=== PATIENT | male | born 1950 | race Caucasian/White ===

== ENCOUNTER 2017-11-26 07:33 | Day surgery (SDC) | payer OTHER ==
[2017-11-26] MEDS ORDERED: Ringers Lactate 1,000 ML IV ONE (07:42)
[2017-11-26] MEDS ORDERED: PROPOFOL 200 MG/20 ML VIAL IV ONE (08:35)
[2017-11-26] MEDS ORDERED: LIDOCAINE 1% MPF 2 ML AMPULE ONE (08:36)
--- NOTE | 2017-11-26 09:02 | ENDO RPT ---
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 ESTIMATED BLOOD LOSS: None CONSENT: The patient understands the risks and benefits of the procedure and understands that these risks include, but are not limited to: sedation, allergic reaction, infection, perforation and/or bleeding. Alternative means of evaluation and treatment include, among others: physical exam, x-rays, and/or surgical intervention. The patient elects to proceed with this endoscopic procedure. DESCRIPTION OF PROCEDURE: During intra-op preparation period all mechanical medical equipment was checked for proper function. Hand hygiene and appropriate measures for infection prevention was taken. Procedure, possible complications, alternatives including, but not limited to possibility of bleeding, perforation, tear, infection, sepsis, need for surgery, need for blood transfusion, were explained to the patient. After the risks, benefits and alternatives of the procedure were thoroughly explained, Informed consent was verified, confirmed and timeout was successfully executed by the treatment team. The patient was placed in the left lateral position. A digital rectal exam was performed and revealed internal hemorrhoids and A digital rectal exam was performed and revealed an enlarged prostate. After appropriate level of anesthesia, the scope was passed. The EC-[id number] ([id number] endoscope was introduced through the anus and advanced to the cecum, which was identified by both the appendix and ileocecal valve. The quality of the prep was good. The instrument was then slowly withdrawn as the colon was fully examined. Scope withdrawal time was 9 minutes. COLON FINDINGS: Mild diverticulosis was noted in the sigmoid colon. No bleeding was noted from the diverticulosis. Moderate sized internal hemorrhoids were found. Retroflexed views revealed no abnormalities. The scope was then completely withdrawn from the patient and the procedure terminated. ADVERSE EVENTS: There were no complications. IMPRESSIONS: 1. Mild diverticulosis was noted in the sigmoid colon 2. Moderate sized internal hemorrhoids RECOMMENDATIONS: 1. fiber rich diet 2. hemorrhoidal hygiene 3. yearly hemoccult starting in 4 years RECALL: Return in 10 year(s) for Colonoscopy. Jonah Flores DR eSigned: Jonah Flores DR 11/26/2017 9:01 AM cc: CPT CODES: ICD9 CODES: PATIENT NAME: Paras DíazRobyn MR#: [id number]
== END 2017-11-26 09:44 | disposition home or self-care (01) ==
LOC: OR 07:33
PROVIDERS: ATTEND Surgery
PROC: 0DJD8ZZ Inspection of Lower Intestinal Tract, Via Natural or Artificial Opening Endoscopic (ICD-10-PCS; principal; 2017-11-26 08:30)
DX: Z12.11 Encounter for screening for malignant neoplasm of colon (principal); K57.30 Diverticulosis of large intestine without perforation or abscess without bleeding; K64.8 Other hemorrhoids; I10 Essential (primary) hypertension; Z80.42 Family history of malignant neoplasm of prostate; Z82.49 Family history of ischemic heart disease and other diseases of the circulatory system
CPT/HCPCS: G0121; J2001

== ENCOUNTER 2022-04-01 09:25 | Emergency (ER) | payer OTHER ==
--- OUTSIDE RECORDS SUMMARY | 2022-04-01 09:31 | XMS REPORT | Continuity of Care Document ---
:1950 Author Organization [facility] t Address [address] [place] [address] [place] [address] Care Team Providers Name Role Phone JessicaKarla Gabriel Primary Care Physician Micaela Orlando Attending Clinician Unavailable STORM LIEBERMAN Attending Clinician Unavailable STORM LIEBERMAN Attending Clinician Unavailable Douglas Goldman MD Attending Clinician Storm Lieberman MD Attending Clinician Doctor Unassigned, [place] Attending Clinician Unavailable Martine Farmer LMSW Attending Clinician DOUGLAS GOLDMAN Attending Clinician Unavailable DOUGLAS GOLDMAN Attending Clinician Unavailable Luisana Lawler PA-C Attending Clinician LUISANA LAWLER Attending Clinician Unavailable BRIANA FREEDMAN Attending Clinician Unavailable Briana Nair Attending Clinician Alexandre Galvez MD Attending Clinician Payers Payer Name Policy Type Policy Number Effective Date Expiration Date S ource MEDICARE MB [id number] [facility] NOVITAS - [facility] NEW ERA LIFE C1 [id number] [facility] INS CO - [facility] Problems Condition Condition Condition Status Onset Resolution Last Treating Co mments Source Name Details Category Date Date Treatment Clinician Date S/P total S/P total Disease Active Uni vers hip hip 2-20 [place]y [place] [facility] [id number] Hyperlipid Problem Com mon emia, Spirit unspecifie - CHI d hyperlipid [facility] emia type [facility] [id number] Screening Problem Com mon for Spirit prostate - [facility]I cancer [facility] [id number] Memory Problem Common loss [facility] [id number] Cognitive Problem Com mon dysfunctio Spirit n - [facility] [id number] Alzheimer' Problem C ommon [id number] s disease Spirit with late - [facility]I onset [facility] [id number] +6th digit Problem C ommon 103 eff Spirit 01/10/22*De - [facility] mentia in [facility] Center elsewhere with behavioral disturbanc e Dementia Dementia Problem Commo n [facility] Allergies, Adverse Reactions, Alerts Allergy Allergy Status Severity Reaction(s) Onset Inactive Treating Comm ents Source Name Type Date Date Clinician NO KNOWN Drug Active Univers ALLERGIE Class ity of S [facility] Social History Social Habit Start Date Stop Date Quantity Comments Source History of [facility] - Tobacco Use [facility] Sex Assigned At [facility]na - [facility] Exposure to 2022-03-13 2022-03-23 Not sure [facility] SARS-CoV-2 00:00:00 09:01:00 [facility] (event) [place] Alcohol intake 2022-03-23 2022-03-23 0 /d University 00:00:00 00:00:00 [facility] Tobacco use and 2015-08-27 2015-08-27 Smokeless tobacco Un iversity of exposure 00:00:00 00:00:00 non-user [facility] Smoking Status Start Date Stop Date Source Never smoked tobacco [facility] Medications Ordered Filled Start Stop Current Ordering Indication Dosage Frequency Signature Comments Components Source Medication Medication Date Date Medication? Clinician (SIG) Name Name rivastigmin 2021-04 Yes [id number] 1{patch Apply 1 Univers e 9.5 mg/24 1-16 } Patch to [place] the Medical morning. Branch rivastigmin 2021-04 Yes [id number] 1{patch Apply 1 Univers e 9.5 mg/24 1-16 } Patch to [place]y of hour patch 00:[place] rivastigmin 2021-04 Yes [id number] 1{patch Apply 1 Univers e 9.5 mg/24 1-16 } Patch to ity of hour patch 00:00[place] morning. Branch rivastigmin 2021-04 Yes [id number] 1{patch Apply 1 Univers e 9.5 mg/24 1-16 } Patch to [place]y of hour patch 00:00[place] morning. Branch rivastigmin 2021-04 Yes [id number] 1{patch Apply 1 Univers e 9.5 mg/24 1-16 } Patch to ity of hour patch 00:00: skin in a the . Branch rivastigmin 2021-04 Yes [id number] 1{patch Apply 1 Univers e 9.5 mg/24 1-16 } Patch to ity of hour patch 00:00: skin in a the morning. Branch rivastigmin Yes 13.3mg Apply 13.3 Univers e (EXELON 9-14 mg to skin ity of PATCH) 13.3 00:00[place] mg/24 [place] 00 Medical PT24 Branch rivastigmin 2021-0 Yes 13.3mg Apply 13.3 Univers e (EXELON 9-14 mg to skin ity of PATCH) 13.3 00:00: [place]. [place] mg/24 [place] 00 Medical PT24 Branch rivastigmin 2021-0 Yes 13.3mg Apply 13.3 Univers e (EXELON 9-14 mg to skin ity of PATCH) 13.3 00:00: [place]. [place] mg/24 [place] 00 Medical PT24 Branch rivastigmin 2021-0 Yes 13.3mg Apply 13.3 Univers e (EXELON 9-14 mg to skin ity of PATCH) 13.3 00:00: [place]. [place] mg/24 [place] 00 Medical PT24 Branch rivastigmin 2021-0 Yes 13.3mg Apply 13.3 Univers e (EXELON 9-14 mg to skin ity of PATCH) 13.3 00:00: [place]. [place] mg/24 [place] 00 Medical PT24 Branch rivastigmin 2021-0 Yes 13.3mg Apply 13.3 Univers e (EXELON 9-14 mg to skin ity of PATCH) 13.3 00:00: [place]. [place] mg/24 hour 00 Medical PT24 Branch rivastigmin 2021-0 Yes 13.3mg Apply 13.3 Univers e (EXELON 9-14 mg to skin ity of PATCH) 13.3 00:00: [place]. [place] mg/24 [place] 00 Medical PT24 Branch rivastigmin 2021-0 Yes 13.3mg Apply 13.3 Univers e (EXELON 9-14 mg to skin ity of PATCH) 13.3 00:00: [place]. [place] mg/24 [place] 00 Medical PT24 Branch rivastigmin 2021-0 Yes 13.3mg Apply 13.3 Univers e (EXELON 9-14 mg to skin ity of PATCH) 13.3 00:00: [place]. [place] mg/24 [place] 00 Medical PT24 Branch rivastigmin 2021-0 Yes 13.3mg Apply 13.3 Univers e (EXELON 9-14 mg to skin ity of PATCH) 13.3 00:00: [place]. [place] mg/24 [place] 00 Medical PT24 Branch rivastigmin 2021-0 Yes 13.3mg Apply 13.3 Univers e (EXELON 9-14 mg to skin ity of PATCH) 13.3 00:00: [place]. [place] mg/24 hour 00 Medical PT24 Branch rivastigmin 2021-0 Yes 13.3mg Apply 13.3 Univers e (EXELON 9-14 mg to skin ity of PATCH) 13.3 00:00: [place]. [place] mg/24 hour 00 Medical PT24 Branch rivastigmin 2021-0 Yes 13.3mg Apply 13.3 Univers e (EXELON 9-14 mg to skin ity of PATCH) 13.3 00:00: [place]. [place] mg/24 [place] 00 Medical PT24 Branch rivastigmin 2021-0 Yes 13.3mg Apply 13.3 Univers e (EXELON 9-14 mg to skin ity of PATCH) 13.3 00:00: [place]. [place] mg/24 [place] 00 Medical PT24 Branch rivastigmin Yes 13.3mg Apply 13.3 Univers e (EXELON 9-14 mg to skin ity of PATCH) 13.3 00:00: [place]. [place] mg/24 hour 00 Medical PT24 Branch rivastigmin 2021- No 13.3mg Apply 13.3 Univers e (EXELON 9-14 11-16 mg to skin ity of PATCH) 13.3 00:00: 00:00 daily. [place] mg/24 hour 00 :00 Medical PT24 Branch EXELON 2021- No 13.3mg Apply 13.3 Un kwaku PATCH 13.3 9-08 09-14 mg to skin it y of mg/24 hour 00:00: 00:[place]. [place] PT24 00 :00 Medical Branch divalproex Yes [id number] 125mg Take 1 Univers Sprinkles 9-06 [id number] capsule by it y of (DEPAKOTE 00:00: mouth [place] SPRINKLES) 00 every 12 Medic al 125 mg (twelve) Branch SPRINKLE hours. capsule divalproex Yes [id number] 125mg Take 1 Univers Sprinkles 9-06 [id number] capsule by it y of (DEPAKOTE 00:00: mouth [place] SPRINKLES) 00 every 12 Medic al 125 mg (twelve) Branch SPRINKLE hours. capsule divalproex Yes [id number] 125mg Take 1 Univers Sprinkles 9-06 [id number] capsule by it y of (DEPAKOTE 00:00: mouth [place] SPRINKLES) 00 every 12 Medic al 125 mg (twelve) Branch SPRINKLE hours. capsule divalproex Yes [id number] 125mg Take 1 Univers Sprinkles 9-06 capsule by ity of (DEPAKOTE 00:00: mouth [place] SPRINKLES) 00 every 12 Medic al 125 mg (twelve) Branch SPRINKLE hours. capsule divalproex Yes [id number] 125mg Take 1 Univers Sprinkles 9-06 capsule by ity of (DEPAKOTE 00:00: mouth [place] SPRINKLES) 00 every 12 Medic al 125 mg (twelve) Branch SPRINKLE hours. capsule divalproex 2022-0 Yes [id number] 125mg Take 1 Univers Sprinkles 9-06 capsule by ity of (DEPAKOTE 00:00: mouth [place] SPRINKLES) 00 every 12 Medic al 125 mg (twelve) Branch SPRINKLE hours. capsule divalproex 0 Yes [id number] 125mg Take 1 Univers Sprinkles 9-06 capsule by ity of (DEPAKOTE 00:00: mouth [place] SPRINKLES) 00 every 12 Medic al 125 mg (twelve) Branch SPRINKLE hours. capsule divalproex Yes [id number] 125mg Take 1 Univers Sprinkles 9-06 capsule by ity of (DEPAKOTE 00:00: mouth [place] SPRINKLES) 00 every 12 Medic al 125 mg (twelve) Branch SPRINKLE hours. capsule divalproex Yes [id number] 125mg Take 1 Univers Sprinkles 9-06 capsule by ity of (DEPAKOTE 00:00: mouth [place] SPRINKLES) 00 every 12 Medic al 125 mg (twelve) Branch SPRINKLE hours. capsule divalproex Yes [id number] 125mg Take 1 Univers Sprinkles 9-06 capsule by ity of (DEPAKOTE 00:00: mouth [place] SPRINKLES) 00 every 12 Medic al 125 mg (twelve) Branch SPRINKLE hours. capsule divalproex Yes [id number] 125mg Take 1 Univers Sprinkles 9-06 capsule by ity of (DEPAKOTE 00:00: mouth [place] SPRINKLES) 00 every 12 Medic al 125 mg (twelve) Branch SPRINKLE hours. capsule divalproex Yes [id number] 125mg Take 1 Univers Sprinkles 9-06 capsule by ity of (DEPAKOTE 00:00: mouth [place] SPRINKLES) 00 every 12 Medic al 125 mg (twelve) Branch SPRINKLE hours. capsule divalproex 2021-0 Yes [id number] 125mg Take 1 Univers Sprinkles 9-06 capsule by ity of (DEPAKOTE 00:00: mouth [place] SPRINKLES) 00 every 12 Medic al 125 mg (twelve) Branch SPRINKLE hours. capsule divalproex 0 Yes [id number] 125mg Take 1 Univers Sprinkles 9-06 capsule by ity of (DEPAKOTE 00:00: mouth [place] SPRINKLES) 00 every 12 Medic al 125 mg (twelve) Branch SPRINKLE hours. capsule divalproex 2022-0 Yes [id number] 125mg Take 1 Univers Sprinkles 9-06 capsule by ity of (DEPAKOTE 00:00: mouth [place] SPRINKLES) 00 every 12 Medic al 125 mg (twelve) Branch SPRINKLE hours. capsule divalproex 2022-0 Yes [id number] 125mg Take 1 Univers Sprinkles 9-06 capsule by ity of (DEPAKOTE 00:00: mouth [place] SPRINKLES) 00 every 12 Medic al 125 mg (twelve) Branch SPRINKLE hours. capsule divalproex 2022-0 Yes [id number] 125mg Take 1 Univers Sprinkles 9-06 capsule by ity of (DEPAKOTE 00:00: mouth [place] SPRINKLES) 00 every 12 Medic al 125 mg (twelve) Branch SPRINKLE hours. capsule divalproex 2022-0 Yes [id number] 125mg Take 1 Univers Sprinkles 9-06 capsule by ity of (DEPAKOTE 00:00: mouth [place] SPRINKLES) 00 every 12 Medic al 125 mg (twelve) Branch SPRINKLE hours. capsule divalproex 2022-0 Yes [id number] 125mg Take 1 Univers Sprinkles 9-06 capsule by ity of (DEPAKOTE 00:00: mouth [place] SPRINKLES) 00 every 12 Medic al 125 mg (twelve) Branch SPRINKLE hours. capsule divalproex 2022-0 Yes [id number] 125mg Take 1 Univers Sprinkles 9-06 capsule by ity of (DEPAKOTE 00:00: mouth [place] SPRINKLES) 00 every 12 Medic al 125 mg (twelve) Branch SPRINKLE hours. capsule divalproex 2022-0 Yes [id number] 125mg Take 1 Univers Sprinkles 9-06 capsule by ity of (DEPAKOTE 00:00: mouth [place] SPRINKLES) 00 every 12 Medic al 125 mg (twelve) Branch SPRINKLE hours. capsule divalproex 2022-0 Yes [id number] 125mg Take 1 Univers Sprinkles 9-06 capsule by ity of (DEPAKOTE 00:00: mouth [place] SPRINKLES) 00 every 12 Medic al 125 mg (twelve) Branch SPRINKLE hours. capsule divalproex 2022-0 Yes [id number] 125mg Take 1 Univers Sprinkles 9-06 capsule by ity of (DEPAKOTE 00:00: mouth [place] SPRINKLES) 00 every 12 Medic al 125 mg (twelve) Branch SPRINKLE hours. capsule rivastigmin 0 2021- No [id number] 13.3mg Apply 13.3 Univers e 13.3 9-06 09-14 [id number] mg to skin ity of mg/24 hour 00:00: 00:00 daily. [place] den[place] PT24 00 : [facility] Branch memantine 5 2020-0 Yes 5mg Take 5 mg U nivers mg tablet 5-05 by mouth ity of 00:00: daily. [place] [facility] Branch memantine 5 2020-0 Yes 5mg Take 5 mg U nivers mg tablet 5-05 by mouth ity of 00:00: daily. [place] [facility] memantine 5 2020-0 Yes 5mg Take 5 mg U nivers mg tablet 5-05 by mouth ity of 00:00: daily. [place] [facility] memantine 5 2020-0 Yes 5mg Take 5 mg U nivers mg tablet 5-05 by mouth ity of 00:00: daily. [place] [facility] memantine 5 2020-0 Yes 5mg Take 5 mg U nivers mg tablet 5-05 by mouth ity of 00:00: daily. [place] [facility] memantine 5 2020-0 Yes 5mg Take 5 mg U nivers mg tablet 5-05 by mouth ity of 00:00: daily. [place] [facility] memantine 5 2020-0 Yes 5mg Take 5 mg U nivers mg tablet 5-05 by mouth ity of 00:00: daily. [place] [facility] memantine 5 2020-0 Yes 5mg Take 5 mg U nivers mg tablet 5-05 by mouth ity of 00:00: daily. [place] [facility] memantine 5 2020-0 Yes 5mg Take 5 mg U nivers mg tablet 5-05 by mouth ity of 00:00: daily. [place] [facility] memantine 5 2020-0 Yes 5mg Take 5 mg U nivers mg tablet 5-05 by mouth ity of 00:00: daily. [place] [facility] memantine 5 2020-0 Yes 5mg Take 5 mg U nivers mg tablet 5-05 by mouth ity of 00:00: daily. [facility] Branch memantine 5 2020-0 Yes 5mg Take 5 mg U nivers mg tablet 5-05 by mouth ity of 00:00: daily. [facility] Branch memantine 5 2020-0 Yes 5mg Take 5 mg U nivers mg tablet 5-05 by mouth ity of 00:00: daily. [place] [facility] Branch memantine 5 2020-0 Yes 5mg Take 5 mg U nivers mg tablet 5-05 by mouth ity of 00:00: daily. [facility] Branch memantine 5 2020-0 Yes 5mg Take 5 mg U nivers mg tablet 5-05 by mouth ity of 00:00: daily. [place] [facility] Branch memantine 5 2020-0 Yes 5mg Take 5 mg U nivers mg tablet 5-05 by mouth ity of 00:00: daily. [place] [facility] memantine 5 2020-0 Yes 5mg Take 5 mg U nivers mg tablet 5-05 by mouth ity of 00:00: daily. [place] [facility] memantine 5 2020-0 Yes 5mg Take 5 mg U nivers mg tablet 5-05 by mouth ity of 00:00: daily. [place] [facility] Branch memantine 5 2020-0 Yes 5mg Take 5 mg U nivers mg tablet 5-05 by mouth ity of 00:00: daily. [place] [facility] Branch memantine 5 2020-0 Yes 5mg Take 5 mg U nivers mg tablet 5-05 by mouth ity of 00:00: daily. [place] [facility] memantine 5 2020-0 Yes 5mg Take 5 mg U nivers mg tablet 5-05 by mouth ity of 00:00: daily. [place] [facility] Branch memantine 5 2020-0 Yes 5mg Take 5 mg U nivers mg tablet 5-05 by mouth ity of 00:00: daily. [place] [facility] Branch memantine 5 2020-0 Yes 5mg Take 5 mg U nivers mg tablet 5-05 by mouth ity of 00:00: daily. [place] [facility] memantine 5 2020-0 Yes 5mg Take 5 mg U nivers mg tablet 5-05 by mouth ity of 00:00: daily. [place] [facility] CholestOff CholestOff 2018-0 Yes Micaela as Common 10-18 [place] directed Spirit 00:00: - [facility]I 00 [facility] Fish Oil Fish Oil Yes Micaela 1 capsule Common 10-18 [place] [facility] 00:00: - [facility]I 00 [facility] Co Q10 Co Q10 Yes Micaela 1 tablet Comm on 10-18 [place] with a Spirit 00:00: meal - CHI 00 [facility] CholestOff CholestOff No CholestOff 450 MG 450 MG - 450 MG 00:00: 00 CholestOff CholestOff No CholestOff 450 MG 450 MG - 450 MG 00:00: 00 Fish Oil Fish Oil No 1{capsu QD Fish Oil 1000 MG 1000 MG 10-18 le} 1000 MG 00:00: 00 Co Q10 100 Co Q10 100 No 1{table QD Co Q10 100 MG MG 10-18 t_with_ MG 00:00: a_meal} 00 CholestOff CholestOff No CholestOff 450 MG 450 MG - 450 MG 00:00: 00 Co Q10 100 Co Q10 100 No 1{table QD Co Q10 100 MG MG - t_with_ MG 00:00: a_meal} 00 Fish Oil Fish Oil No 1{capsu QD Fish Oil 1000 MG 1000 MG 10-18 le} 1000 MG 00:00: 00 Co Q10 100 Co Q10 100 No 1{table QD Co Q10 100 MG MG - t_with_ MG 00:00: a_meal} Fish Oil Fish Oil No 1{capsu QD Fish Oil 1000 MG 1000 MG 10-18 le} 1000 MG 00:00: 00 CholestOff CholestOff No CholestOff 450 MG 450 MG - 450 MG 00:00: 00 Co Q10 100 Co Q10 100 No 1{table QD Co Q10 100 MG MG - t_with_ MG 00:00: a_meal} Fish Oil Fish Oil No 1{capsu QD Fish Oil 1000 MG 1000 MG 10-18 le} 1000 MG 00:00: 00 CholestOff CholestOff No CholestOff 450 MG 450 MG - 450 MG 00:00: 00 Co Q10 100 Co Q10 100 No 1{table QD Co Q10 100 MG MG 7-09 t_with_ MG 00:00: a_meal} 00 CholestOff CholestOff 2017- No CholestOff 450 MG 450 MG 7- 450 MG 00:00: 00 Fish Oil Fish Oil No 1{capsu QD Fish Oil 1000 MG 1000 MG 7 le} 1000 MG 00:00: 00 CholestOff CholestOff No CholestOff 450 MG 450 MG 7- 450 MG 00:00: 00 Fish Oil Fish Oil No 1{capsu QD Fish Oil 1000 MG 1000 MG 7 le} 1000 MG 00:00: 00 Co Q10 100 Co Q10 100 No 1{table QD Co Q10 100 MG MG 7- t_with_ MG 00:00: a_meal} 00 Co Q10 100 Co Q10 100 No 1{table QD Co Q10 100 MG MG 7- t_with_ MG 00:00: a_meal} 00 Fish Oil Fish Oil No 1{capsu QD Fish Oil 1000 MG 1000 MG 10-18 le} 1000 MG 00:00: 00 CholestOff CholestOff No CholestOff 450 MG 450 MG 10-18 450 MG 00:00: 00 Co Q10 100 Co Q10 100 No 1{table QD Co Q10 100 MG MG 7- t_with_ MG 00:00: a_meal} Fish Oil Fish Oil No 1{capsu QD Fish Oil 1000 MG 1000 MG 10-18 le} 1000 MG 00:00: 00 FLUZONE 2016-04 Yes IMMUNIZATI Univ ers HIGH-DOSE 0-16 ON GIVEN ity of , 00:00: [place] PF, 180 00 Medical mcg/0.5 mL Branch FLUZONE 2016-04 Yes IMMUNIZATI Univ ers HIGH-DOSE 0-16 ON GIVEN ity of , 00:00: [place] PF, 180 00 Medical mcg/0.5 mL Branch FLUZONE 2016-04 Yes IMMUNIZATI Univ ers HIGH-DOSE 0-16 ON GIVEN ity of , 00:00: [place] PF, 180 00 Medical mcg/0.5 mL Branch FLUZONE 2016-04 Yes IMMUNIZATI Univ ers HIGH-DOSE 0-16 ON GIVEN ity of , 00:00: [place] PF, 180 00 Medical mcg/0.5 mL Branch FLUZONE 2016-04 Yes IMMUNIZATI Univ ers HIGH-DOSE 0-16 ON GIVEN ity of , 00:00: [place] PF, 180 00 Medical mcg/0.5 mL Branch FLUZONE 2016-04 Yes IMMUNIZATI Univ ers HIGH-DOSE 0-16 ON GIVEN ity of , 00:00: [place] PF, 180 00 Medical mcg/0.5 mL Branch FLUZONE 2016-04 Yes IMMUNIZATI Univ ers HIGH-DOSE 0-16 ON GIVEN ity of , 00:00: [place] PF, 180 00 Medical mcg/0.5 mL Branch FLUZONE 2016-04 Yes IMMUNIZATI Univ ers HIGH-DOSE 0-16 ON GIVEN ity of , 00:00: [place] PF, 180 00 Medical mcg/0.5 mL Branch FLUZONE 2016-04 Yes IMMUNIZATI Univ ers HIGH-DOSE 0-16 ON GIVEN ity of , 00:00: [place] PF, 180 00 Medical mcg/0.5 mL Branch FLUZONE 2016-04 Yes IMMUNIZATI Univ ers HIGH-DOSE 0-16 ON GIVEN ity of , 00:00: [place] PF, 180 00 Medical mcg/0.5 mL Branch FLUZONE 2016-04 Yes IMMUNIZATI Univ ers HIGH-DOSE 0-16 ON GIVEN ity of , 00:00: [place] PF, 180 00 Medical mcg/0.5 mL Branch FLUZONE 2016-04 Yes IMMUNIZATI Univ ers HIGH-DOSE 0-16 ON GIVEN ity of , 00:00: [place] PF, 180 00 Medical mcg/0.5 mL Branch FLUZONE 2016-04 Yes IMMUNIZATI Univ ers HIGH-DOSE 0-16 ON GIVEN ity of , 00:00: [place] PF, 180 00 Medical mcg/0.5 mL Branch FLUZONE 2016-04 Yes IMMUNIZATI Univ ers HIGH-DOSE 0-16 ON GIVEN ity of , 00:00: [place] PF, 180 00 Medical mcg/0.5 mL Branch FLUZONE 2016-04 Yes IMMUNIZATI Univ ers HIGH-DOSE 0-16 ON GIVEN ity of , 00:00: [place] PF, 180 00 Medical mcg/0.5 mL Branch FLUZONE 2016-04 Yes IMMUNIZATI Univ ers HIGH-DOSE 0-16 ON GIVEN ity of , 00:00: [place] PF, 180 00 Medical mcg/0.5 mL Branch FLUZONE 2016-04 Yes IMMUNIZATI Univ ers HIGH-DOSE 0-16 ON GIVEN ity of , 00:00: [place] PF, 180 00 Medical mcg/0.5 mL Branch FLUZONE 2016-04 Yes IMMUNIZATI Univ ers HIGH-DOSE 0-16 ON GIVEN ity of , 00:00: [place] PF, 180 00 Medical mcg/0.5 mL Branch FLUZONE 2016-04 Yes IMMUNIZATI Univ ers HIGH-DOSE 0-16 ON GIVEN ity of , 00:00: [place] PF, 180 00 Medical mcg/0.5 mL Branch FLUZONE 2016-04 Yes IMMUNIZATI Univ ers HIGH-DOSE 0-16 ON GIVEN ity of , 00:00: [place] PF, 180 00 Medical mcg/0.5 mL Branch FLUZONE 2016-04 Yes IMMUNIZATI Univ ers HIGH-DOSE 0-16 ON GIVEN ity of , 00:00: [place] PF, 180 00 Medical mcg/0.5 mL Branch FLUZONE 2016-04 Yes IMMUNIZATI Univ ers HIGH-DOSE 0-16 ON GIVEN ity of , 00:00: [place] PF, 180 00 Medical mcg/0.5 mL Branch FLUZONE 2016-04 Yes IMMUNIZATI Univ ers HIGH-DOSE 0-16 ON GIVEN ity of , 00:00: [place] PF, 180 00 Medical mcg/0.5 mL Branch FLUZONE 2016-04 Yes IMMUNIZATI Univ ers HIGH-DOSE 0-16 ON GIVEN ity of , 00:00: [place] PF, 180 00 Medical mcg/0.5 mL Branch Vitamin D Vitamin D No 1{capsu QD Vitamin D 50 MCG 50 MCG le} 50 MCG (1999 [place]) (1999 [place]) (1999) Multivitami Multivitami No 1{table QD Multivitam n Adult - n Adult - t} in Adult - Divalproex Divalproex No 1{capsu QD Divalproex Sodium 125 Sodium 125 le} Sodium 125 MG MG MG Rivastigmin Rivastigmin No 1{patch QD Rivastigmi e 13.3 e 13.3 _to_ski ne 13.3 MG/24HR MG/24HR n} MG/24HR Vitamin D Vitamin D No 1{capsu QD Vitamin D 50 MCG 50 MCG le} 50 MCG (1999) (1999) (1999) Multivitami Multivitami No 1{table QD Multivitam n Adult - n Adult - t} in Adult - Divalproex Divalproex No 1{capsu QD Divalproex Sodium 125 Sodium 125 le} Sodium 125 MG MG MG Rivastigmin Rivastigmin No 1{patch QD Rivastigmi e 13.3 e 13.3 _to_ski ne 13.3 MG/24HR MG/24HR n} MG/24HR Rivastigmin Rivastigmin No 1{patch QD Rivastigmi e 13.3 e 13.3 _to_ski ne 13.3 MG/24HR MG/24HR n} MG/24HR Divalproex Divalproex No 1{capsu QD Divalproex Sodium 125 Sodium 125 le} Sodium 125 MG MG MG Vitamin D Vitamin D No 1{capsu QD Vitamin D 50 MCG 50 MCG le} 50 MCG (1999) (1999) (1999) Multivitami Multivitami No 1{table QD Multivitam n Adult - n Adult - t} in Adult - Multivitami Multivitami No 1{table QD Multivitam n Adult - n Adult - t} in Adult - Vitamin D Vitamin D No 1{capsu QD Vitamin D 50 MCG 50 MCG le} 50 MCG (1999) (1999) (1999) Rivastigmin Rivastigmin No 1{patch QD Rivastigmi e 13.3 e 13.3 _to_ski ne 13.3 MG/24HR MG/24HR n} MG/24HR Divalproex Divalproex No 1{capsu QD Divalproex Sodium 125 Sodium 125 le} Sodium 125 MG MG MG Vitamin D Vitamin D No 1{capsu QD Vitamin D 50 MCG 50 MCG le} 50 MCG (1999) (1999) (1999 [place]) Multivitami Multivitami No 1{table QD Multivitam n Adult - n Adult - t} in Adult - Divalproex Divalproex No 1{capsu QD Divalproex Sodium 125 Sodium 125 le} Sodium 125 MG MG MG Rivastigmin Rivastigmin No 1{patch QD Rivastigmi e 13.3 e 13.3 _to_ski ne 13.3 MG/24HR MG/24HR n} MG/24HR Vitamin D Vitamin D No 1{capsu QD Vitamin D 50 MCG 50 MCG le} 50 MCG (1999) (1999) (1999) Multivitami Multivitami No 1{table QD Multivitam n Adult - n Adult - t} in Adult - Divalproex Divalproex No 1{capsu QD Divalproex Sodium 125 Sodium 125 le} Sodium 125 MG MG MG Rivastigmin Rivastigmin No 1{patch QD Rivastigmi e 13.3 e 13.3 _to_ski ne 13.3 MG/24HR MG/24HR n} MG/24HR Vitamin D Vitamin D No 1{capsu QD Vitamin D 50 MCG 50 MCG le} 50 MCG (1999) (1999) (1999) Multivitami Multivitami No 1{table QD Multivitam n Adult - n Adult - t} in Adult - Memantine Memantine No 1{table QD Memantine HCl 5 MG HCl 5 MG t} HCl 5 MG Memantine Memantine No 1{table QD Memantine HCl 5 MG HCl 5 MG t} HCl 5 MG Vitamin D Vitamin D No 1{capsu QD Vitamin D 50 MCG 50 MCG le} 50 MCG (1999) (1999) (1999) Multivitami Multivitami No 1{table QD Multivitam n Adult - n Adult - t} in Adult - Immunizations Ordered Filled Immunization Date Status Comments Sourc e Immunization Name Name FLUZONE HIGH DOSE FLUZONE HIGH DOSE 2022-01-23 Completed [facility] - OVER [facility] OVER 65 09:24:00 [facility] FLUZONE HIGH DOSE FLUZONE HIGH DOSE 2022-01-23 Completed [facility] - OVER 65 OVER 65 09:24:00 [facility] FLUZONE HIGH DOSE FLUZONE HIGH DOSE 2021-02-17 Completed [facility] - OVER 65 OVER 65 11:47:00 [facility] FLUZONE HIGH DOSE FLUZONE HIGH DOSE 2021-02-17 Completed [facility] - OVER 65 OVER 65 11:47:00 [facility] FLUZONE HIGH DOSE FLUZONE HIGH DOSE 2021-02-17 Completed [facility] - OVER 65 OVER 65 11:47:00 [facility] FLUZONE HIGH DOSE FLUZONE HIGH DOSE 2021-02-17 Completed [facility] - OVER 65 OVER 65 11:47:00 [facility] FLUZONE HIGH DOSE FLUZONE HIGH DOSE 2021-02-17 Completed [facility] - OVER 65 OVER 65 11:47:00 [facility] FLUZONE HIGH DOSE FLUZONE HIGH DOSE 2021-02-17 Completed [facility] - OVER 65 OVER 65 11:47:00 [facility] FLUZONE HIGH DOSE FLUZONE HIGH DOSE 2021-02-17 Completed [facility] - OVER 65 OVER 65 11:47:00 [facility] FLUZONE HIGH DOSE FLUZONE HIGH DOSE 2021-02-17 Completed [facility] - OVER 65 OVER 65 11:47:00 [facility] SARS-COV-2 COVID-19 2020-07-07 Completed Unive rsity of MODERNA 12+ YRS 00:00:00 [place] [facility] SARS-COV-2 COVID-19 2020-07-07 Completed Unive rsity of [facility] 12+ YRS 00:00:00 [place] [facility] SARS-COV-2 COVID-19 2020-07-07 Completed Unive rsity of [place] 12+ YRS 00:00:00 [place] [facility] SARS-COV-2 COVID-19 2020-07-07 Completed Unive rsity of [place] 12+ YRS 00:00:00 [place] [facility] SARS-COV-2 COVID-19 2020-07-07 Completed Unive rsity of [place] 12+ YRS 00:00:00 [place] [facility] SARS-COV-2 COVID-19 2020-07-07 Completed Unive rsity of [place] 12+ YRS 00:00:00 [place] [facility] SARS-COV-2 COVID-19 2020-07-07 Completed Unive rsity of [place] 12+ YRS 00:00:00 [place] [facility] SARS-COV-2 COVID-19 2020-07-07 Completed Unive rsity of [place] 12+ YRS 00:00:00 [place] [facility] SARS-COV-2 COVID-19 2020-07-07 Completed Unive rsity of [place] 12+ YRS 00:00:00 [place] [facility] SARS-COV-2 COVID-19 2020-07-07 Completed Unive rsity of [place] 12+ YRS 00:00:00 [place] [facility] SARS-COV-2 COVID-19 2020-07-07 Completed Unive rsity of [place] 12+ YRS 00:00:00 [place] [facility] SARS-COV-2 COVID-19 2020-07-07 Completed Unive rsity of [place] 12+ YRS 00:00:00 [place] [facility] SARS-COV-2 COVID-19 2020-07-07 Completed Unive rsity of [place] 12+ YRS 00:00:00 [place] [facility] SARS-COV-2 COVID-19 2020-07-07 Completed Unive rsity of [place] 12+ YRS 00:00:00 [place] [facility] SARS-COV-2 COVID-19 2020-07-07 Completed Unive rsity of [place] 12+ YRS 00:00:00 [place] [facility] SARS-COV-2 COVID-19 2020-07-07 Completed Unive rsity of [place] 12+ YRS 00:00:00 [place] [facility] SARS-COV-2 COVID-19 2020-07-07 Completed Unive rsity of [place] 12+ YRS 00:00:00 [place] [facility] SARS-COV-2 COVID-19 2020-07-07 Completed Unive rsity of [place] 12+ YRS 00:00:00 [place] [facility] SARS-COV-2 COVID-19 2020-07-07 Completed Unive rsity of [facility] 12+ YRS 00:00:00 [place] [facility] SARS-COV-2 COVID-19 2020-07-07 Completed Unive rsity of [facility] 12+ YRS 00:00:00 [place] [facility] SARS-COV-2 COVID-19 2020-07-07 Completed Unive rsity of [place] 12+ YRS 00:00:00 [place] [facility] SARS-COV-2 COVID-19 2020-07-07 Completed Unive rsity of [facility] 12+ YRS 00:00:00 [place] [facility] SARS-COV-2 COVID-19 2020-07-07 Completed Unive rsity of [place] 12+ YRS 00:00:00 [place] [facility] SARS-COV-2 COVID-19 2020-07-07 Completed Unive rsity of [place] 12+ YRS 00:00:00 [place] [facility] SARS-COV-2 COVID-19 2020-06-09 Completed Unive rsity of [place] 12+ YRS 00:00:00 [place] [facility] SARS-COV-2 COVID-19 2020-06-09 Completed Unive rsity of [place] 12+ YRS 00:00:00 [place] [facility] SARS-COV-2 COVID-19 2020-06-09 Completed Unive rsity of [place] 12+ YRS 00:00:00 [place] [facility] SARS-COV-2 COVID-19 2020-06-09 Completed Unive rsity of [place] 12+ YRS 00:00:00 [place] [facility] SARS-COV-2 COVID-19 2020-06-09 Completed Unive rsity of [facility] 12+ YRS 00:00:00 [place] [facility] SARS-COV-2 COVID-19 2020-06-09 Completed Unive rsity of [place] 12+ YRS 00:00:00 [place] [facility] SARS-COV-2 COVID-19 2020-06-09 Completed Unive rsity of [place] 12+ YRS 00:00:00 [place] [facility] SARS-COV-2 COVID-19 2020-06-09 Completed Unive rsity of [facility] 12+ YRS 00:00:00 [place] [facility] SARS-COV-2 COVID-19 2020-06-09 Completed Unive rsity of [facility] 12+ YRS 00:00:00 [place] [facility] SARS-COV-2 COVID-19 2020-06-09 Completed Unive rsity of [place] 12+ YRS 00:00:00 [place] [facility] SARS-COV-2 COVID-19 2020-06-09 Completed Unive rsity of [place] 12+ YRS 00:00:00 [place] [facility] SARS-COV-2 COVID-19 2020-06-09 Completed Unive rsity of [place] 12+ YRS 00:00:00 [place] [facility] SARS-COV-2 COVID-19 2020-06-09 Completed Unive rsity of [place] 12+ YRS 00:00:00 [place] [facility] SARS-COV-2 COVID-19 2020-06-09 Completed Unive rsity of [place] 12+ YRS 00:00:00 [place] [facility] SARS-COV-2 COVID-19 2020-06-09 Completed Unive rsity of [place] 12+ YRS 00:00:00 [place] [facility] SARS-COV-2 COVID-19 2020-06-09 Completed Unive rsity of [place] 12+ YRS 00:00:00 [place] [facility] SARS-COV-2 COVID-19 2020-06-09 Completed Unive rsity of [place] 12+ YRS 00:00:00 [place] [facility] SARS-COV-2 COVID-19 2020-06-09 Completed Unive rsity of [place] 12+ YRS 00:00:00 [place] [facility] SARS-COV-2 COVID-19 2020-06-09 Completed Unive rsity of [facility] 12+ YRS 00:00:00 [place] [facility] SARS-COV-2 COVID-19 2020-06-09 Completed Unive rsity of [place] 12+ YRS 00:00:00 [place] [facility] SARS-COV-2 COVID-19 2020-06-09 Completed Unive rsity of [facility] 12+ YRS 00:00:00 [place] [facility] SARS-COV-2 COVID-19 2020-06-09 Completed Unive rsity of [facility] 12+ YRS 00:00:00 [place] [facility] SARS-COV-2 COVID-19 2020-06-09 Completed Unive rsity of [facility] 12+ YRS 00:00:00 [place] [facility] SARS-COV-2 COVID-19 2020-06-09 Completed Unive rsity of [facility] 12+ YRS 00:00:00 [place] [facility] Prevnar 13 Prevnar 13 2017-10-18 [facility]pleted [facility] - -Pneumonia Vaccine -Pneumonia Vaccine 15:06:00 [facility] Prevnar 13 Prevnar 13 2017-10-18 Completed [facility] - -Pneumonia Vaccine -Pneumonia Vaccine 15:06:00 [facility] Prevnar 13 Prevnar 13 2017-10-18 Completed [facility] - -Pneumonia Vaccine -Pneumonia Vaccine 15:06:00 [facility] Prevnar 13 Prevnar 13 2017-10-18 Completed [facility] - -Pneumonia Vaccine -Pneumonia Vaccine 15:06:00 [facility] Prevnar 13 Prevnar 13 2017-10-18 Completed [facility] - -Pneumonia Vaccine -Pneumonia Vaccine 15:06:00 [facility] Prevnar 13 Prevnar 13 2017-10-18 Completed [facility] - -Pneumonia Vaccine -Pneumonia Vaccine 15:06:00 [facility] Prevnar 13 Prevnar 13 2017-10-18 Completed [facility] - -Pneumonia Vaccine -Pneumonia Vaccine 15:06:00 [facility] Prevnar 13 Prevnar 13 2017-10-18 Completed [facility] - -Pneumonia Vaccine -Pneumonia Vaccine 15:06:00 [facility] Prevnar 13 Prevnar 13 2017-10-18 Completed [facility] - -Pneumonia Vaccine -Pneumonia Vaccine 00:00:00 [facility] Vital Signs Vital Name Observation Time Observation Value Comments Source height 2022-02-04 16:00:00 68 [in_i] [facility] weight 2022-02-04 16:00:00 145 [lb_av] [facility] bmi 2022-02-04 16:00:00 22.04 kg/m2 [facility] height 2022-01-06 11:00:00 68 [in_i] [facility] weight 2022-01-06 11:00:00 146 [lb_av] [facility] temperature 2022-01-06 11:00:00 97.1 [degF] [facility] bmi 2022-01-06 11:00:00 22.2 kg/m2 [facility] oximetry 2022-01-06 11:00:00 100 % [facility] respiratory rate 2022-01-06 11:00:00 18 /min Comm on [facility] blood pressure 2022-01-06 11:00:00 131 mm[Hg] [facility] systolic [facility] blood pressure 2022-01-06 11:00:00 63 mm[Hg] [facility] diastolic [facility] height 2021-02-17 11:40:00 68 [in_i] [facility] weight 2021-02-17 11:40:00 161 [lb_av] [facility] temperature 2021-02-17 11:40:00 98.2 [degF] [facility] bmi 2021-02-17 11:40:00 24.48 kg/m2 [facility] Procedures Procedure Date / Time Performed Performing Clinician Sourc e OP CORRESPONDENCE 2022-02-02 05:01:00 Doctor Unassigned, No Univ ersity of [facility] [place] - OTHER 2022-01-08 05:01:00 Doctor Unassigned, No Un iversity of [facility] 2021-12-25 05:01:00 Doctor Unassigned, No Un iversity of [facility] HEALTH 485 2021-11-24 05:01:00 Doctor Unassigned, No Univer sity of [facility] Encounters Start End Encounter Admission Attending Care Care Encounter Source Date/Time Date/Time Type Type Clinicians Facility Department ID 2022-01-[address] [facility] [id number] Common 10:22:00 Micaela [id number] [facility] 2022-03-31 2022-03-31 Telephone MANOJ Goldman 1.2.840.114 [id number] [facility] 00:00:00 00:00:00 Amicus Medicus [facility] 350.1.13.10 itgurpreet jain [place] 4.2.7.2.686 [place] GUME?BLEA [id number] Wy nishi MERIDA [address] [place] MEDICAL OFFICE BUILDING 2022-03-23 2022-03-23 Outpatient R STORM LIEBERMAN [facility] 10 [id number] Univers 14:00:00 14:08:55 STORM LIEBERMAN i ty of [facility] 2022-03-23 2022-03-23 Office ANNELIESE Lieberman [id number] [facility] 14:00:00 14:08:55 Visit Storm [facility] 350.1.13.10 i ty of [facility] [place].2.7.[id number] [address] 2022-02-27 2022-02-27 Telephone [facility] 1.2.840.114 [id number] Univers 00:00:00 00:00:00 [facility] 350.1.13.10 ity of [place] 4.2.7.2.686 [place] GUME?BLEA [phone] [address] OFFICE [facility] 2022-02-25 2022-02-25 Telephone [facility] 1.2.840.114 [id number] Univers 00:00:00 00:00:00 [facility] 350.1.13.10 ity of [place] 4.2.7.2.686 [place] GUME?BLEA [phone] [address] OFFICE [facility] 2022-02-24 2022-02-24 Telephone [facility] 1.2.840.114 [id number] Univers 00:00:00 00:00:00 [facility] 350.1.13.10 ity of [place] 4.2.7.2.686 [place] GUME?BLEA [phone] [address] OFFICE [facility] 2022-02-18 2022-02-18 Telephone [facility] 1.2.840.114 [id number] Univers 00:00:00 00:00:00 [facility] 350.1.13.10 ity of [place] 4.2.7.2.686 [place] GUME?BLEA [phone] [address] OFFICE [facility] 2022-02-17 2022-02-17 Telephone [facility] 1.2.840.114 [id number] Univers 00:00:00 00:00:00 [facility] 350.1.13.10 ity of [place] 4.2.7.2.686 [place] GUME?BLEA [id number] Wy nishi [address] OFFICE [facility] 2022-02-13 2022-02-13 Telephone [facility] 1.2.840.114 [id number] Univers 00:00:00 00:00:00 [facility] 350.1.13.10 ity of [place] 4.2.7.2.686 [place] GUME?BLEA [id number] [address] 2022-02-09 2022-02-09 Telephone [facility] 1.2.840.114 [id number] Univers 00:00:00 00:00:00 [facility] 350.1.13.10 ity of [place] 4.2.7.2.686 [place] GUME?BLEA [id number] [address] 2022-02-05 2022-02-05 Telephone [facility] 1.2.840.114 [id number] Univers 00:00:00 00:00:00 [facility] 350.1.13.10 ity of [place] 4.2.7.2.686 [place] GUME?BLEA [phone] [address] 2022-02-04 2022-02-[address] [facility] [id number] Common 00:00:00 00:00:00 [facility] WELLNESS - CHI VISIT [facility] 2022-02-03 2022-02-03 Telephone [facility] 1.2.840.114 [id number] Univers 00:00:00 00:00:00 [facility] 350.1.13.10 ity of [place] 4.2.7.2.686 [place] GUME?BLEA [id number] [address] 2022-02-02 2022-02-02 Orders Doctor TRIANA 1.2.840.114 [id number] 00:00:00 00:00:00 Only Unassigned, MARLYN 350.1.13.10 ity of [place] [facility] 4.2.7.2.686 [place] as [id number] [address] 2022-01-28 2022-01-28 [facility] 1.2.840.114 [id number] Univers 00:00:00 00:00:00 [facility] 350.1.13.10 [place] [id number] [address] 2022-01-27 2022-01-27 Telephone [facility] 1.2.840.114 [id number] Univers 00:00:00 00:00:00 [facility] 350.1.13.10 [facility] 4.2.7.2.686 [place] GUME?BLEA [phone] [address] MEDICAL OFFICE [facility] 2022-01-23 2022-01-[address] [facility] [id number] Co mmon 00:00:00 00:00:00 VISIT Spirit [facility] PT - CHI LEVEL 2 [facility] 2022-01-22 2022-01-22 Telephone [facility] 1.2.840.114 [id number] Univers 00:00:00 00:00:00 [facility] 350.1.13.10 [place] [id number] [address] 2022-01-19 2022-01-19 Telephone [facility] 1.2.840.114 [id number] Univers 00:00:00 00:00:00 [facility] 350.1.13.10 it[facility] 4.2.7.2.686 [place] GUME?BLEA [id number] [address] MEDICAL OFFICE [facility] 2022-01-19 2022-01-19 (TEL) [facility] [id number] Co mmon 00:00:00 00:00:00 Spirit [facility] 2022-01-08 2022-01-08 Orders Doctor KAMILAH 1.2.840.114 [id number] Univers 00:00:00 00:00:00 Only Unassigned, MARLYN 350.1.13.10 ity of [place] [facility] 4.2.7.2.686 [place] as [id number] [address] 2022-01-06 2022-01-[address] [facility] [id number] Co mmon 00:00:00 00:00:00 VISIT EST Spir it PT LEVEL 3 - CHI [facility] 2022-01-01 2022-01-01 Telephone [facility] 1.2.840.114 [id number] Univers 00:00:00 00:00:00 [place] Gene HEALTH 350.1.13.10 ity of [facility] 4.2.7.2.686 [place] GUME?BLEA [phone] [address] MEDICAL OFFICE [facility] 2021-12-25 2021-12-25 Orders Doctor KAMILAH 1.2.840.114 [id number] Univers 00:00:00 00:00:00 Only Unassigned, MARLYN 350.1.13.10 ity of [place] [facility] 4.2.7.2.686 [place] as [id number] [address] 2021-12-24 2021-12-24 Telephone [facility] 1.2.840.114 [id number] Univers 00:00:00 00:00:00 Douglas Gene HEALTH 350.1.13.10 ity of [place] 4.2.7.2.686 [place] as GUME?BLEA [id number] [address] MEDICAL OFFICE [facility] 2021-12-24 2021-12-24 Patient Darian VTLUIS ANTONIO 1.2.840.114 [id number] Univers 00:00:00 00:00:00 Outreach Martine L HEALTH 350.1.13.10 i ty of [place] 4.2.7.2.686 [place] as GUME?BLEA [id number] [address] MEDICAL OFFICE BUILDING 2021-12-24 2021-12-24 Patient Darian VTLUIS ANTONIO 1.2.840.114 [id number] Univers 00:00:00 00:00:00 Outreach Martine L HEALTH 350.1.13.10 i ty of [place] 4.2.7.2.686 [place] as GUME?BLEA [phone] [address] OFFICE [facility] 2021-12-16 2021-12-16 Office Susi [facility] 1.2.840.114 [id number] Univers 10:40:00 13:01:52 Visit [facility] 350.1.13.10 ity of [place] 4.2.7.2.686 [place] as GUME?BLEA [id number] [address] 2021-12-16 2021-12-16 Outpatient DOUGLAS COLLINS [facility] [id number] Univers 10:40:00 13:01:52 DOUGLAS GOLDMAN gurpreet [facility] 2021-12-16 2021-12-16 Outpatient R DOUGLAS GOLDMAN [facility] [id number] Univers 10:40:00 10:40:00 DOUGLAS GOLDMAN [facility] 2021-12-16 2021-12-16 Orders Doctor KAMILAH 1.2.840.114 [id number] Univers 00:00:00 00:00:00 Only Unassigned, MARLYN 350.1.13.10 ity of [place] [facility] 4.2.7.2.686 [place] as [id number] [address] 2021-12-16 2021-12-16 [facility] 1.2.840.114 [id number] Univers 00:00:00 00:00:00 [facility] 350.1.13.10 ity of [place] 4.2.7.2.686 [place] as GUME?BLEA [phone] [address] 2021-12-16 2021-12-16 Telephone Susi [facility] 1.2.840.114 [id number] Univers 00:00:00 00:00:00 [facility] 350.1.13.10 ity of [place] 4.2.7.2.686 [place] as GUME?BLEA [id number] [address] 2021-12-16 2021-12-16 [facility] 1.2.840.114 [id number] Univers 00:00:00 00:00:00 [facility] 350.1.13.10 ity of [place] 4.2.7.2.686 [place] as GUME?BLEA [id number] [address] MEDICAL OFFICE BUILDING 2021-11-24 2021-11-24 Orders Doctor KAMILAH 1.2.840.114 [id number] Univers 00:00:00 00:00:00 Only Unassigned, MARLYN 350.1.13.10 ity of [place] [facility] 4.2.7.2.686 [place] as [phone] [facility] [address] [place] 2021-09-15 2021-09-15 Office ANNELIESE Lieberman [id number] Univers 15:15:00 15:44:33 Visit [facility] 350.1.13.10 i ty of [facility] 4.2.7.2.[place] [id number] [facility] [address] [place] 2021-09-15 2021-09-15 Outpatient R STORM LIEBERMAN [facility] [id number] Univers 15:15:00 15:44:33 STORM LIEBERMAN i ty of [facility] 2021-09-15 2021-09-15 Outpatient STORM KOROMA [facility] 10 [id number] Univers 15:15:00 15:15:00 STORM LIEBERMAN i ty of [facility] 2021-09-15 2021-09-15 Outpatient R LUISANA STORM [facility] 10 [id number] Univers 15:15:00 15:15:00 STORM LIEBERMAN i ty of [facility] 2021-08-14 2021-08-14 [facility] 1.2.840.114 [id number] Univers 00:00:00 00:00:00 [facility] 350.1.13.10 ity [facility] 4.2.7.2.686 [place] GUME?BLEA [phone] [address] MEDICAL OFFICE [facility] 2021-08-04 2021-08-04 Outpatient R STORM LIEBERMAN [facility] 10 [id number] Univers 14:00:00 14:00:00 STORM LIEBERMAN i ty of [facility] 2021-05-27 2021-05-27 (TEL) [facility] [id number] Co mmon 00:00:00 00:00:00 Spirit - CHI [facility] 2021-03-28 2021-03-28 Orders Doctor KAMILAH 1.2.840.114 [id number] Univers 00:00:00 00:00:00 Only Unassigned, MARLYN 350.1.13.10 [facility] 4.2.7.2.686 [place] as [id number] [facility] [address] [place] 2021-02-19 2021-02-19 Fabricio Goldman [facility] 1.2.840.114 [id number] Univers 00:00:00 00:00:00 Douglas [facility] 350.1.13.10 ity of [place].2.[place].2.[place] [phone] [address] 2021-02-17 2021-02-[address] [facility] [id number] Co mmon 00:00:00 00:00:00 VISIT David ESTAB PT - CHI LEVEL 1 [facility] 2021-02-03 2021-02-03 Outpatient R STORM LIEBERMAN [facility] [id number] Univers 14:30:00 14:54:02 STORM LIEBERMAN i ty of [facility] 2021-02-03 2021-02-03 Office ANNELIESE Lieberman [id number] Univers 14:10:34 14:54:02 Visit Storm [facility] 350.1.13.10 i ty of [facility] 4.2.7.2.686 [place] [id number] [facility] [address] 2020-12-20 2020-12-20 Refcarmelina Goldman [facility] 1.2.840.114 [id number] Univers 00:00:00 00:00:00 Douglas [facility] 350.1.13.10 ity of [place] 4.2.7.2.686 [place] Gume?Blea [id number] Wy dical alannahey [address] [place] [address] Medical Office Building 2020-12-13 2020-12-13 Office [facility] 1.2.840.114 [id number] Univers 10:22:10 13:17:22 Visit Douglas Jackman [facility] 350.1.13.10 ity of [place] 4.2.7.2.686 [place] as Gume?Blea [id number] Wy nishi merida [address] [place] [address] 2020-12-13 2020-12-13 Outpatient DOUGLAS COLLINS [facility] [id number] Univers 10:40:00 10:40:00 DOUGLAS GOLDMAN [facility] 2020-12-04 2020-12-04 [facility] [id number] Common 00:00:00 00:00:00 [facility] 2020-11-19 2020-11-19 [facility]carmelina [facility] 1.2.840.114 [id number] Univers 00:00:00 00:00:00 Douglas Jackman [place] 350.1.13.10 ity of [place].2.[place] [phone] Wy nishi cobos [address] [place] [address] 2020-11-19 2020-11-19 [facility] 1.2.840.114 [id number] Univers 00:00:00 00:00:00 Douglas [place] 350.1.13.10 [place] of [place]2.[place].2.[place] [id number] Wy ericar chandrika 2 [facility] 2020-11-06 2020-11-06 Office ANNELIESE Lawler [id number] Univers 12:46:02 13:16:02 Visit Luisana Cohen 350.1.13.10 it y of [facility] 4.2.7.2.686 [place] as BANK [phone] [facility] BLDG. [address] [place] 2020-11-06 2020-11-06 Outpatient Fantasma LAWLER [facility] [id number] Univers 13:00:00 13:00:00 LUISANA phan [facility] 2020-10-25 2020-10-25 Telephone Susi [facility] 1.2.840.114 [id number] Univers 00:00:00 00:00:00 Douglas Jackman Raffaele 350.1.13.10 ity of [place].2.[place] [id number] Wy dicar nal 092 [facility] 2020-10-24 2020-10-24 [facility] [id number] Univers 09:53:57 23:59:00 Encounter Douglas Jackman Raffaele 350.1.13.10 ity of [place].2.686 [place] [id number] [facility] [address] [place] 2020-10-24 2020-10-24 Outpatient DOUGLAS COLLINS [facility] [id number] Univers 00:00:00 00:00:00 SUSI DOUGLAS phan [facility] 2020-10-24 2020-10-24 Telephone [facility] 1.2.840.114 [id number] Univers 00:00:00 00:00:00 Douglas Castorena 350.1.13.10 [place] of [place] [phone] Wy dicar nal [address] [place] [address] 2020-10-18 2020-10-18 [facility] 1.2.840.114 [id number] Univers 08:06:15 09:22:13 Visit Douglas Jackman Raffaele 350.1.13.10 [place] of [place] 4[place]2.[place].2.[place] [phone] Wy dical nal [address] [place] [address] 2020-10-18 2020-10-18 Outpatient Fantasma GUNNCatherine DOUGLAS [facility] [id number] Univers 08:00:00 08:00:00 SUSIDOUGLAS Alexander sylvester [facility] 2020-10-18 2020-10-18 Orders Doctor TRIANA 1.2.840.114 [id number] Univers 00:00:00 00:00:00 Only Unassigned, MARLYN 350.1.13.10 ity of [place] [facility] 4.2.7.2.686 Benito as [phone] Medi [address] 2020-10-10 2020-10-10 Orders Doctor KAMILAH 1.2.840.114 [id number] Univers 00:00:00 00:00:00 Only Unassigned, MARLYN [id number] [facility] [place] [facility] 4.2.7.2.686 Benito as [phone] [address] 2020-10-09 2020-10-09 Outpatient STLMLC STLMLC [id number] Common 00:00:00 00:00:00 [facility] 2020-10-02 2020-10-02 Outpatient STLC STLC [id number] Common 00:00:00 00:00:00 [facility] 2020-10-01 2020-10-01 Orders Doctor KAMILAH Wray2.840.114 [id number] Univers 00:00:00 00:00:00 Only Unassigned, MARLYN [id number] [facility] [place] [facility] 4.2.7.2.686 Benito as [phone] [address] 2020-09-04 2020-09-04 Orders Doctor KAMILAH 1.2.840.114 [id number] Univers 00:00:00 00:00:00 Only Unassigned, MARLYN [id number] [facility] [place] [facility] 4.2.7.2.686 Benito as [phone] [address] 2020-08-14 2020-08-14 Outpatient STLC STLC [id number] Common 00:00:00 00:00:00 [facility] 2020-08-05 2020-08-05 Orders Doctor KAMILAH Wray2.840.114 [id number] Univers 00:00:00 00:00:00 Only Unassigned, MARLYN [id number] [facility] [place] [facility] 4.2.7.2.686 Benito as [phone] [address] 2020-07-30 2020-07-30 Outpatient R JASMINA VTLUIS ANTONIO VTLUIS ANTONIO [id number] Univers 16:15:00 16:15:00 BRIANA itgurpreet [facility] 2020-07-30 2020-07-30 Nadine Freedman VTLUIS ANTONIO 1.2.840.114 [id number] Univers 15:50:12 16:05:12 Visit Briana Norton [facility] [id number] it y of Surgical 4.2.7.2.686 Benito as Specialti [phone] Wy dical es [address] [facility] 2020-07-07 2020-07-07 Outpatient [facility] [id number] Univers 12:10:00 12:10:00 [facility] 2020-06-09 2020-06-09 Outpatient [facility] [id number] Univers 12:15:00 12:15:00 [facility] 2020-02-05 2020-02-05 Office ANNELIESE Lieberman [id number] Univers 14:04:21 14:55:02 Visit Storm Cohen [facility] [id number] i [id number] [id number] [facility] [address] 2020-02-05 2020-02-05 Outpatient Fantasma LIEBERMAN STORM [facility] [id number] Univers 14:00:00 14:00:00 STORM LIEBERMAN i ty of [facility] 2020-02-05 2020-02-05 Outpatient Fantasma LIEBERMAN STORM [facility] 10 [id number] Univers 14:00:00 14:00:00 STORM LIEBERMAN i ty of [facility] 2019-11-08 2019-11-08 Outpatient [facility] [id number] Common 15:00:00 15:00:[address] [facility] [address] [facility] 2019-10-31 2019-10-31 Outpatient [facility] [id number] Common 11:00:00 11:00:[address] [facility] [address] [facility] 2019-10-09 2019-10-09 [facility] [id number] Univers 12:43:00 23:59:00 Encounter Alexandre Rios Raffaele [id number] [id number] [id number] [facility] [address] [place] 2019-10-09 2019-10-09 Outpatient R JASMINA [facility] [id number] Univers 13:45:00 13:45:00 BRIANA ity [facility] 2019-10-09 2019-10-09 Office Jasmina [facility] [id number] Univers 13:12:43 13:27:43 Visit Briana Norton [facility] [id number] it y of Surgical [id number] [place] Specialti [phone] Wy dical es [address] [facility] 2019-10-09 2019-10-09 Telephone Lenny [facility] [id number] Univers 00:00:00 00:00:00 Alexandre [facility] [id number] it y of Surgical [id number] [place] Specialti [phone] Wy dical es [address] [facility] 2019-10-09 2019-10-09 Orders Doctor TRIANA [id number] Univers 00:00:00 00:00:00 Only Unassigned, MARLYN [id number] ity of [place] [facility] [id number] [place] [id number] [address] 2018-11-01 2018-11-01 Outpatient [facility] [id number] Common 16:40:00 16:40:[address] [facility] [address] [facility] 2018-10-21 2018-10-21 Outpatient [facility] [id number] Common 14:56:00 14:56:00 t [facility] it Road [facility] 2018-10-18 2018-10-18 Outpatient [facility] [id number] Common 09:15:00 09:15:00 t [facility] it Road [facility] 2018-04-27 2018-04-27 Outpatient [facility] [id number] Common 10:30:00 10:30:00 t [facility] it Road [facility] 2017-11-09 2017-11-09 Outpatient Brazchris Srt [id number] Common 10:15:00 10:15:00 t Specialty/U Sp anna Specialty rology - [facility]Urology Clinic [facility] 2017-10-20 2017-10-20 Outpatient Remberto Telles [id number] Common 10:02:00 10:02:00 [facility] 2017-10-18 2017-10-18 Outpatient Remberto Telles [id number] Common 14:30:00 14:30:00 [facility] Results This patient has no known results.
[2022-04-01] MEDS ORDERED: NA CHLORIDE 0.9% 1,000 ML ONE (09:55)
[2022-04-01 10:00] LABS: Absolute Lymphocytes (CBC) 1.1 K/uL (0.7-4.9); Hematocrit 38.2 % (39.6-49.0); Lymphocytes % 12.6 % (15.3-44.8); MPV 7.8 fL (7.6-11.3)
[2022-04-01 10:40] LABS: Albumin 3.3 g/dL (3.4-5.0); Bilirubin Total 1.5 mg/dL (0.2-1.0); Magnesium 2.2 mg/dL (1.6-2.4); Potassium 3.7 mmol/L (3.5-5.1); Protein, Total 6.2 g/dL (6.4-8.2); Troponin High Sensitivity 9.1 pg/mL (<58.9)
[2022-04-01 11:29] LABS: Urine Blood Negative (Negative); Urine Glucose Negative (Negative); Urine Protein Negative (Negative); Urine Specific Gravity 1.025 (1.005-1.030)
[2022-04-01 11:42] LABS: Urine Bacteria None Seen /HPF (<20); Urine Mucus Slight /HPF (None Seen); Urine RBC <5 /HPF (None Seen); Urine Sperm Present (None Seen)
--- NOTE | 2022-04-01 11:58 | EDPHYS ---
Physician Documentation [facility] Name: Paras Díaz Age: 72 yrs Sex: Male : 1950 Arrival Date: 04/01/2022 Time: 09:31 Bed 20 Private MD: ED Physician Janusz Wadsworth HPI: 04/01 10:23 This 72 yrs old Male presents to ER via EMS with complaints of Urinary Problem. rt 10:23 The patient presents with urinary symptoms. Onset: The symptoms/episode began/occurred rt yesterday. Modifying factors: The symptoms are alleviated by nothing, the symptoms are aggravated by nothing. Associated signs and symptoms: Pertinent positives: confusion. Severity of symptoms: At their worst the symptoms were moderate. Unable to obtain HPI due to baseline dementia. History limited due to baseline dementia, history obtained per patient's . The states that the patient has been "lethargic", with occasional slumping over and sitting in the chair for many hours per day which is not typical for him. He states that he has had foul-smelling urine. Denies other acute complaints at this time, symptoms are moderate severity, no other aggravating or alleviating factors.. Historical: - Allergies: 09:34 No Known Allergies; ph - PMHx: 09:34 Dementia; ph - Immunization history:: Adult Immunizations unknown. - Social history:: Smoking status: unknown. - Family history:: not pertinent. - Unable to obtain history due to: baseline dementia. ROS: 10:23 Unable to obtain ROS due to baseline dementia. rt Exam: 10:23 Constitutional: This is a well developed, well nourished patient who is awake, alert, rt and in no acute distress. Head/Face: Normocephalic, atraumatic. Eyes: Pupils equal round and reactive to light, extra-ocular motions intact. Lids and lashes normal. Conjunctiva and sclera are non-icteric and not injected. Cornea within normal limits. Periorbital areas with no swelling, redness, or edema. ENT: Nares patent. No nasal discharge, no septal abnormalities noted. Tympanic membranes are normal and external auditory canals are clear. Oropharynx with no redness, swelling, or masses, exudates, or evidence of obstruction, uvula midline. Mucous membranes moist. Neck: Trachea midline, no thyromegaly or masses palpated, and no cervical lymphadenopathy. Supple, full range of motion without nuchal rigidity, or vertebral point tenderness. No Meningismus. Chest/axilla: Normal chest wall appearance and motion. Nontender with no deformity. No lesions are appreciated. Cardiovascular: Regular rate and rhythm with a normal S1 and S2. No gallops, murmurs, or rubs. Normal PMI, no JVD. No pulse deficits. Respiratory: Lungs have equal breath sounds bilaterally, clear to auscultation and percussion. No rales, rhonchi or wheezes noted. No increased work of breathing, no retractions or nasal flaring. Abdomen/GI: Soft, non-tender, with normal bowel sounds. No distension or tympany. No guarding or rebound. No evidence of tenderness throughout. Skin: Warm, dry with normal turgor. Normal color with no rashes, no lesions, and no evidence of cellulitis. MS/ Extremity: Pulses equal, no cyanosis. Neurovascular intact. Full, normal range of motion. Neuro: Awake and alert, GCS 15, oriented to person, place, time, and situation. Cranial nerves II-XII grossly intact. Motor strength 5/5 in all extremities. Sensory grossly intact. Cerebellar exam normal. Normal gait. Psych: Awake, alert, with orientation to person, place and time. Behavior, mood, and affect are within normal limits. 10:33 ECG was reviewed by the Attending Physician. rt Vital Signs: 09:32 BP 131 / 92; Pulse 70; Resp 18; Pulse Ox 100% on R/A; Weight 81.65 kg; Height 5 ft. 10 ph in. (177.80 cm); 10:19 Temp 97.8(TE); ph 11:06 BP 138 / 91; Pulse 69; Resp 18; Pulse Ox 98% on R/A; ph 09:32 Body Mass Index 25.83 (81.65 kg, 177.80 cm) ph MDM: 09:32 Patient medically screened. rt 12:01 Differential diagnosis: UTI, dehydration, sepsis, electrolyte abnormalities, anemia. rt Data reviewed: vital signs, nurses notes, lab test result(s), EKG. ED course: Patient presents to the ED with generalized weakness. The symptoms have improved with IV fluids, he is ambulatory with a shuffling gait. The patient has benign labs, no evidence of UTI, does have ketones in his urine, likely attributing for the smell. Believe this is a continued progression of his chronic illness. At this time, there are no indications for admission to the hospital. Patient to follow-up with primary care and neurology as an outpatient, return precautions were discussed with the patient's was comfortable discharge. 04/01 09:33 Order name: CBC with Diff; Complete Time: 11:42 rt 04/01 09:33 Order name: CMP; Complete Time: 11:42 rt 04/01 09:33 Order name: Magnesium; Complete Time: 11:42 rt 04/01 09:33 Order name: CPK; Complete Time: 11:42 rt 04/01 09:33 Order name: Troponin High Sensitivity; Complete Time: 11:42 rt 04/01 09:33 Order name: UA MICROSCOPIC; Complete Time: 11:42 rt 04/01 09:33 Order name: EKG; Complete Time: 09:33 rt 04/01 09:33 Order name: EKG - Nurse/Tech; Complete Time: 10:19 rt 04/01 09:33 Order name: Urine Dipstick-Ancillary (obtain specimen); Complete Time: 11:26 rt 04/01 11:29 Order name: Urine Dipstick-Ancillary; Complete Time: 11:42 EDMS EC:33 Rate is 66 beats/min. Rhythm is regular, Normal Sinus Rhythm with No ectopy. QRS [place] rt is Normal. PA interval is normal. QRS interval is normal. QT interval is normal. No Q waves. T waves are Normal. No ST changes noted. Administered Medications: 10:02 Drug: NS 0.9% 1000 ml Route: IV; Rate: 1 bolus; Site: right antecubital; ph 11:25 Follow up: Response: No adverse reaction; IV Status: Completed infusion; IV Intake: ph 1000ml Disposition Summary: 04/01/22 11:57 Discharge Ordered Location: Home rt Problem: an ongoing problem rt Symptoms: have improved rt Condition: Stable rt Diagnosis - Dehydration rt Followup: rt - With: Private Physician - When: 1 week - Reason: Discharge Instructions: - Discharge Summary Sheet rt - Dehydration, Elderly rt Forms: - Medication Reconciliation Form rt - Thank You Letter rt - Antibiotic Education rt - Prescription Opioid Use rt Signatures: [facility] Raine Navarrete RN RN ph Janusz Wadsworth MD MD rt
--- NOTE | 2022-04-01 11:58 | ER ---
Nurse's Notes [facility] Name: Paras Díaz Age: 72 yrs Sex: Male : 1950 Arrival Date: 04/01/2022 Time: 09:31 Bed 20 Private MD: Diagnosis: Dehydration Presentation: 04/01 09:32 Chief complaint: EMS states: Pt from home, states that she is concerned that he ph may have a UTI. Reports that urine has been foul smelling and that pt has been more lethargic than normal, hx of Alzheimer's/dementia, oriented to person only at baseline. Coronavirus screen: Vaccine status: Patient reports receiving the 2nd dose of the covid vaccine. Ebola Screen: No symptoms or risks identified at this time. Initial Sepsis Screen: Does the patient meet any 2 criteria? No. Patient's initial sepsis screen is negative. Does the patient have a suspected source of infection? Yes: Dysuria/Frequency/Urgency/UTI. Risk Assessment: Do you want to hurt yourself or someone else? Patient reports no desire to harm self or others. Onset of symptoms was April 01, 2022. 09:32 Method Of Arrival: EMS: [facility] 09:32 Acuity: ADRIÁN 3 ph Triage Assessment: 09:34 General: Appears in no apparent distress. well groomed, Behavior is quiet. Pain: Denies ph pain. Neuro: Level of Consciousness is awake, alert, Oriented to person. Cardiovascular: Capillary refill < 3 seconds in bilateral fingers Patient's skin is warm and dry. Respiratory: Airway is patent Respiratory effort is even, unlabored. : Parent/caregiver report the patient having foul smelling urine. Derm: Skin is fragile, is thin, Skin is pink, warm \T\ dry. Musculoskeletal: Circulation, motion, and sensation intact. Range of motion: intact in all extremities. Historical: - Allergies: 09:34 No Known Allergies; ph - PMHx: 09:34 Dementia; ph - Immunization history:: Adult Immunizations unknown. - Social history:: Smoking status: unknown. - Family history:: not pertinent. - Unable to obtain history due to: baseline dementia. Screenin:36 [facility] ED Fall Risk Assessment (Adult) History of falling in the last 3 months, ph including since admission Yes- single mechanical fall (1 pt) Confusion or Disorientation Yes (5 pts) Intoxicated or Sedated No (0 pts) Impaired Gait No (0 pts) Mobility Assist Device Used No (0 pt) Altered Elimination Yes (1 pt) Score/Fall Risk Level 3 or more points = High Risk Oriented to surroundings, Maintained a safe environment, Hourly rounding (assess needs \T\ fall precautionary measures) done, Used ambulatory aids as needed (educated on \T\ assisted with), Utilized family, sitter, or virtual software engineer sales as indicated. Abuse screen: Denies threats or abuse. Denies injuries from another. Nutritional screening: No deficits noted. Tuberculosis screening: No symptoms or risk factors identified. Assessment: 10:21 General: SEE TRIAGE ASSESSMENT. ph 11:09 Reassessment: Patient appears in no apparent distress at this time. Patient and/or ph family updated on plan of care and expected duration. Pain level reassessed. Pt awake and alert. Vital Signs: 09:32 BP 131 / 92; Pulse 70; Resp 18; Pulse Ox 100% on R/A; Weight 81.65 kg; Height 5 ft. 10 ph in. (177.80 cm); 10:19 Temp 97.8(TE); ph 11:06 BP 138 / 91; Pulse 69; Resp 18; Pulse Ox 98% on R/A; ph 09:32 Body Mass Index 25.83 (81.65 kg, 177.80 cm) ph ED Course: 09:31 Patient arrived in ED. ph 09:32 Janusz Wadsworth MD is Attending Physician. rt 09:34 Triage completed. ph 09:34 Arm band placed on Patient placed in an exam room. ph 09:36 Patient has correct armband on for positive identification. Placed in gown. Bed in low ph position. Call light in reach. Pulse ox on. NIBP on. 09:52 Raine Navarrete RN is Primary Nurse. ph 09:52 Initial lab(s) drawn, by ED staff, sent to lab. Inserted saline lock: 22 gauge in right ph antecubital area, using aseptic technique. Blood collected. 09:58 Troponin High Sensitivity Sent. em1 09:58 CPK Sent. em1 09:58 Magnesium Sent. em1 09:58 CMP Sent. em1 09:58 CBC with Diff Sent. em1 11:26 Straight cath inserted, using sterile technique, 16 Fr. Specimen obtained. Returned ph abby urine. Patient tolerated well. 12:07 No provider procedures requiring assistance completed. IV discontinued, intact, ph bleeding controlled, No redness/swelling at site. Pressure dressing applied. Administered Medications: 10:02 Drug: NS 0.9% 1000 ml Route: IV; Rate: 1 bolus; Site: right antecubital; ph 11:25 Follow up: Response: No adverse reaction; IV Status: Completed infusion; IV Intake: ph 1000ml Medication: 10:22 VIS not applicable for this client. ph Intake: 11:25 IV: 1000ml; Total: 1000ml. ph Outcome: 11:57 Discharge ordered by . rt 12:07 Discharged to home via wheelchair, with significant other. ph 12:07 Condition: good 12:07 Discharge instructions given to significant other, Instructed on discharge instructions, follow up and referral plans. Demonstrated understanding of instructions, follow-up care. 12:08 Patient left the ED. ph Signatures: Luiz Mcnally em1 Raine Navarrete RN RN ph Janusz Wadsworht MD MD rt
[2022-04-01 12:32] VITALS: TEMP 97.8
[2022-04-01 12:33] VITALS: BP 138/91; O2SAT 98
== END 2022-04-01 12:08 | disposition home or self-care (01) ==
LOC: ER 09:25
DX: E86.0 Dehydration (principal)
CPT/HCPCS: 85025; 36415; 83735; 82550; 84484; 80053; J7030; 81003; 81015; 93005

== ENCOUNTER 2022-04-25 09:12 | Inpatient (IN) | payer OTHER ==
--- OUTSIDE RECORDS SUMMARY | 2022-04-25 09:17 | XMS REPORT | Continuity of Care Document ---
:1950 Author Organization [facility] t Address [address] [place] [address] [place] [address] Care Team Providers Name Role Phone JessicaKarla Gabriel Primary Care Physician Micaela Orlando Attending Clinician Unavailable STORM LIEBERMAN Attending Clinician Unavailable STORM LIEBERMAN Attending Clinician Unavailable Douglas Goldman MD Attending Clinician Storm Lieberman MD Attending Clinician Doctor Unassigned, [place] Attending Clinician Unavailable Martine Farmer LMSW Attending Clinician DOUGLAS GOLDMAN Attending Clinician Unavailable DOUGLAS GOLDMAN Attending Clinician Unavailable Luisana Lawler PA-C Attending Clinician LUISANA LAWLER Attending Clinician Unavailable BRIANA FREEDMAN Attending Clinician Unavailable Briana Nair Attending Clinician Alexandre Galvez MD Attending Clinician Payers Payer Name Policy Type Policy Number Effective Date Expiration Date S ource MEDICARE MB [id number] [facility] NOVITAS - [facility] NEW ERA LIFE C1 [id number] [facility] INS CO - [facility] Problems Condition Condition Condition Status Onset Resolution Last Treating Co mments Source Name Details Category Date Date Treatment Clinician Date S/P total S/P total Disease Active Uni vers hip hip 2-20 ity of [place] Medical Branch [id number] Hyperlipid Problem Com mon emia, Spirit unspecifie - CHI d hyperlipid [facility] emia type [facility] [id number] Screening Problem Com mon for Spirit prostate - CHI cancer [facility] [id number] Memory Problem Common loss [facility] - [facility] [id number] Cognitive Problem Com mon dysfunctio Spirit n - [facility] [id number] Alzheimer' Problem C ommon [id number] s disease Spirit with late - CHI onset [facility] [id number] +6th digit Problem C ommon 103 eff Spirit 01/10/22*De - CHI mentia in [facility] Center elsewhere with behavioral disturbanc e Dementia Dementia Problem Commo n [facility] Allergies, Adverse Reactions, Alerts Allergy Allergy Status Severity Reaction(s) Onset Inactive Treating Comm ents Source Name Type Date Date Clinician NO KNOWN Drug Active Univers ALLERGIE Class ity of S [facility] Social History Social Habit Start Date Stop Date Quantity Comments Source History of [facility] - Tobacco Use [facility] Sex Assigned At [facility] anna - [facility] Exposure to 2022-03-13 2022-03-23 Not sure [facility] SARS-CoV-2 00:00:00 09:01:00 [facility] (event) [place] Alcohol intake 2022-03-23 2022-03-23 0 /d University 00:00:00 00:00:00 [facility] Tobacco use and 2015-08-27 2015-08-27 Smokeless tobacco Un iversity of exposure 00:00:00 00:00:00 non-user [facility] Smoking Status Start Date Stop Date Source Never smoked tobacco [facility] Medications Ordered Filled Start Stop Current Ordering Indication Dosage Frequency Signature Comments Components Source Medication Medication Date Date Medication? Clinician (SIG) Name Name rivastigmin 2021-04 Yes [id number] 1{patch Apply 1 Univers e 9.5 mg/24 1-16 } Patch to ity of hour patch [place] the Medical morning. Branch rivastigmin 2021-04 Yes [id number] 1{patch Apply 1 Univers e 9.5 mg/24 1-16 } Patch to ity of hour patch [place] Branch rivastigmin 2021-04 Yes [id number] 1{patch Apply 1 Univers e 9.5 mg/24 1-16 } Patch to ity of hour patch 00:00: [facility] the morning. Branch rivastigmin 2021-04 Yes [id number] 1{patch Apply 1 Univers e 9.5 mg/24 1-16 } Patch to ity of hour patch [place]:00: [place]. Branch rivastigmin 2021-04 Yes [id number] 1{patch Apply 1 Univers e 9.5 mg/24 1-16 } Patch to ity of hour patch 00:00: skin in [facility] the morning. Branch rivastigmin 2021-04 Yes [id number] 1{patch Apply 1 Univers e 9.5 mg/24 1-16 } Patch to ity of hour patch 00:00: skin in [facility] the morning. Branch rivastigmin 2021-04 Yes [id number] 1{patch Apply 1 Univers e 9.5 mg/24 [...] mg/24 hour 00 Medical PT24 Branch rivastigmin 0 Yes 13.3mg Apply 13.3 Univers e (EXELON [...] PT24 00 :00 Medical Branch divalproex Yes [id number] 125mg Take 1 Univers Sprinkles 9-06 [id number] capsule by it y of (DEPAKOTE 00:00: mouth [place] SPRINKLES) 00 every 12 Medic al 125 mg (twelve) Branch SPRINKLE hours. capsule divalproex Yes [id number] 125mg Take 1 Univers Sprinkles 9-06 197225 capsule by it y of (DEPAKOTE 00:00: mouth [place] SPRINKLES) 00 every 12 Medic al 125 mg (twelve) Branch SPRINKLE hours. capsule divalproex Yes [id number] 125mg Take 1 Univers Sprinkles 9-06 [id number] capsule by it y of (DEPAKOTE 00:00: mouth [place] SPRINKLES) 00 every 12 Medic al 125 mg (twelve) Branch SPRINKLE hours. capsule divalproex Yes [id number] 125mg Take 1 Univers Sprinkles 9-06 capsule by ity of (DEPAKOTE 00:00: mouth [place] SPRINKLES) 00 every 12 Medic al 125 mg (twelve) Branch SPRINKLE hours. capsule divalproex 0 Yes [id number] 125mg Take 1 Univers Sprinkles 9-06 capsule by ity of (DEPAKOTE 00:00: mouth [place] SPRINKLES) 00 every 12 Medic al 125 mg (twelve) Branch SPRINKLE hours. capsule divalproex 2021-0 Yes [id number] 125mg Take 1 Univers Sprinkles 9-06 capsule by ity of (DEPAKOTE 00:00: mouth [place] SPRINKLES) 00 every 12 Medic al 125 mg (twelve) Branch SPRINKLE hours. capsule divalproex 2021-0 Yes [id number] 125mg Take 1 Univers Sprinkles 9-06 capsule by ity of (DEPAKOTE 00:00: mouth [place] SPRINKLES) 00 every 12 Medic al 125 mg (twelve) Branch SPRINKLE hours. capsule divalproex 2021-0 Yes [id number] 125mg Take 1 Univers Sprinkles 9-06 capsule by ity of (DEPAKOTE 00:00: mouth [place] SPRINKLES) 00 every 12 Medic al 125 mg (twelve) Branch SPRINKLE hours. capsule divalproex 2021-0 Yes [id number] 125mg Take 1 Univers Sprinkles 9-06 capsule by ity of (DEPAKOTE 00:00: mouth [place] SPRINKLES) 00 every 12 Medic al 125 mg (twelve) Branch SPRINKLE hours. capsule divalproex 2021-0 Yes [id number] 125mg Take 1 Univers Sprinkles 9-06 capsule by ity of (DEPAKOTE 00:00: mouth [place] SPRINKLES) 00 every 12 Medic al 125 mg (twelve) Branch SPRINKLE hours. capsule divalproex 2021-0 Yes [id number] 125mg Take 1 Univers Sprinkles 9-06 capsule by ity of (DEPAKOTE 00:00: mouth [place] SPRINKLES) 00 every 12 Medic al 125 mg (twelve) Branch SPRINKLE hours. capsule divalproex 2021-0 Yes [id number] 125mg Take 1 Univers Sprinkles 9-06 capsule by ity of (DEPAKOTE 00:00: mouth [place] SPRINKLES) 00 every 12 Medic al 125 mg (twelve) Branch SPRINKLE hours. capsule divalproex 2021-0 Yes [id number] 125mg Take 1 Univers Sprinkles 9-06 capsule by ity of (DEPAKOTE 00:00: mouth [place] SPRINKLES) 00 every 12 Medic al 125 mg (twelve) Branch SPRINKLE hours. capsule divalproex 2022-0 Yes [id number] 125mg Take 1 Univers Sprinkles 9-06 capsule by ity of (DEPAKOTE 00:00: mouth [place] SPRINKLES) 00 every 12 Medic al 125 mg (twelve) Branch SPRINKLE hours. capsule divalproex 2022-0 Yes [id number] 125mg Take 1 Univers Sprinkles 9-06 capsule by ity of (DEPAKOTE 00:00: mouth [place] SPRINKLES) 00 every 12 Medic al 125 mg (twelve) Branch SPRINKLE hours. capsule divalproex 2022-0 Yes [id number] 125mg Take 1 Univers Sprinkles 9-06 capsule by ity of (DEPAKOTE 00:00: mouth [place] SPRINKLES) 00 every 12 Medic al 125 mg (twelve) Branch SPRINKLE hours. capsule divalproex 2022-0 Yes [id number] 125mg Take 1 Univers Sprinkles 9-06 capsule by ity of (DEPAKOTE 00:00: mouth [place] SPRINKLES) 00 every 12 Medic al 125 mg (twelve) Branch SPRINKLE hours. capsule divalproex 2022-0 Yes [id number] 125mg Take 1 Univers Sprinkles 9-06 capsule by ity of (DEPAKOTE 00:00: mouth [place] SPRINKLES) 00 every 12 Medic al 125 mg (twelve) Branch SPRINKLE hours. capsule divalproex 2-0 Yes [id number] 125mg Take 1 Univers Sprinkles 9-06 capsule by ity of (DEPAKOTE 00:00: mouth [place] SPRINKLES) 00 every 12 Medic al 125 mg (twelve) Branch SPRINKLE hours. capsule divalproex 2022-0 Yes [id number] 125mg Take 1 Univers Sprinkles 9-06 capsule by ity of (DEPAKOTE 00:00: mouth [place] SPRINKLES) 00 every 12 Medic al 125 mg (twelve) Branch SPRINKLE hours. capsule divalproex 2022-0 Yes [id number] 125mg Take 1 Univers Sprinkles 9-06 capsule by ity of (DEPAKOTE 00:00: mouth [place] SPRINKLES) 00 every 12 Medic al 125 mg (twelve) Branch SPRINKLE hours. capsule divalproex 2022-0 Yes [id number] 125mg Take 1 Univers Sprinkles 9-06 capsule by ity of (DEPAKOTE 00:00: mouth [place] SPRINKLES) 00 every 12 Medic al 125 mg (twelve) Branch SPRINKLE hours. capsule divalproex 0 Yes [id number] 125mg Take 1 Univers Sprinkles 9-06 capsule by ity of (DEPAKOTE 00:00: mouth [place] SPRINKLES) 00 every 12 Medic al 125 mg (twelve) Branch SPRINKLE hours. capsule divalproex 2021-0 Yes [id number] 125mg Take 1 Univers Sprinkles 9-06 capsule by ity of (DEPAKOTE 00:00: mouth [place] SPRINKLES) 00 every 12 Medic al 125 mg (twelve) Branch SPRINKLE hours. capsule rivastigmin 2021- No [id number] 13.3mg Apply 13.3 Univers e 13.3 9 09-14 [id number] mg to skin ity of mg/24 hour 00:00: 00:00 daily. Soniya walker PT24 00 : [facility] memantine 5 2020-0 Yes 5mg Take 5 mg U nivers mg tablet 5-05 by mouth ity of 00:00: daily. [facility] Branch memantine 5 2020-0 Yes 5mg Take 5 mg U nivers mg tablet 5-05 by mouth ity of 00:00: daily. [facility] Branch memantine 5 2020-0 Yes 5mg Take 5 mg U nivers mg tablet 5-05 by mouth ity of 00:00: daily. [facility] memantine 5 2020-0 Yes 5mg Take 5 mg U nivers mg tablet 5-05 by mouth ity of 00:00: daily. [facility] memantine 5 2020-0 Yes 5mg Take 5 mg U nivers mg tablet 5-05 by mouth ity of 00:00: daily. [facility] memantine 5 2020-0 Yes 5mg Take 5 mg U nivers mg tablet 5-05 by mouth ity of 00:00: daily. [facility] memantine 5 2020-0 Yes 5mg Take 5 mg U nivers mg tablet 5-05 by mouth ity of 00:00: daily. [facility] memantine 5 2020-0 Yes 5mg Take 5 mg U nivers mg tablet 5-05 by mouth ity of 00:00: daily. [place] [facility] Branch memantine 5 2020-0 Yes 5mg Take 5 mg U nivers mg tablet 5-05 by mouth ity of 00:00: daily. [place] Medical Branch memantine 5 2020-0 Yes 5mg Take 5 mg U nivers mg tablet 5-05 by mouth ity of 00:00: daily. [place] [facility] memantine 5 2020-0 Yes 5mg Take 5 mg U nivers mg tablet 5-05 by mouth ity of 00:00: daily. [place] Medical Branch memantine 5 2020-0 Yes 5mg Take 5 mg U nivers mg tablet 5-05 by mouth ity of 00:00: daily. [place] [facility] Branch memantine 5 2020-0 Yes 5mg Take 5 mg U nivers mg tablet 5-05 by mouth ity of 00:00: daily. [place] [facility] memantine 5 2020-0 Yes 5mg Take 5 mg U nivers mg tablet 5-05 by mouth ity of 00:00: daily. [place] [facility] memantine 5 2020-0 Yes 5mg Take 5 mg U nivers mg tablet 5-05 by mouth ity of 00:00: daily. [place] [facility] memantine 5 2020-0 Yes 5mg Take 5 mg U nivers mg tablet 5-05 by mouth ity of 00:00: daily. [place] [facility] Branch memantine 5 2020-0 Yes 5mg Take 5 mg U nivers mg tablet 5-05 by mouth ity of 00:00: daily. [place] [facility] memantine 5 2020-0 Yes 5mg Take 5 mg U nivers mg tablet 5-05 by mouth ity of 00:00: daily. [place] [facility] Branch memantine 5 2020-0 Yes 5mg Take 5 mg U nivers mg tablet 5-05 by mouth ity of 00:00: daily. [place] [facility] Branch memantine 5 2020-0 Yes 5mg Take 5 mg U nivers mg tablet 5-05 by mouth ity of 00:00: daily. [place] [facility] memantine 5 2020-0 Yes 5mg Take 5 mg U nivers mg tablet 5-05 by mouth ity of 00:00: daily. [place] [facility] memantine 5 2020-0 Yes 5mg Take 5 mg U nivers mg tablet 5-05 by mouth ity of 00:00: daily. [place] [facility] memantine 5 2020- Yes 5mg Take 5 mg U nivers mg tablet 5-05 by mouth ity of 00:00: daily. [place] [facility] memantine 5 2020-0 Yes 5mg Take 5 mg U nivers mg tablet 5-05 by mouth ity of 00:00: daily. [place] [facility] memantine 5 2020- Yes 5mg Take 5 mg U nivers mg tablet 5-05 by mouth ity of 00:00: daily. [address] CholestOff CholestOff Yes Micaela as Common 10-18 [place] directed Spirit 00:00: - [facility] Fish Oil Fish Oil Yes Micaela 1 capsule Common 10-18 [place] Spirit 00:00: - [facility] Co Q10 Co Q10 Yes Micaela 1 tablet Comm on 10-18 [place] with a Spirit 00:00: meal - [facility] CholestOff CholestOff No CholestOff 450 MG 450 MG 10-18 450 MG 00:00: 00 CholestOff CholestOff No CholestOff 450 MG 450 MG 10-18 450 MG 00:00: 00 Fish Oil Fish Oil No 1{capsu QD Fish Oil 1000 MG 1000 MG 10-18 le} 1000 MG 00:00: 00 Co Q10 100 Co Q10 100 No 1{table QD Co Q10 100 MG MG 10-18 t_with_ MG 00:00: a_meal} CholestOff CholestOff 0 No CholestOff 450 MG 450 MG 10-18 450 MG 00:00: 00 Co Q10 100 Co Q10 100 No 1{table QD Co Q10 100 MG MG 10-18 t_with_ MG 00:00: a_meal} Fish Oil Fish Oil No 1{capsu QD Fish Oil 1000 MG 1000 MG 10-18 le} 1000 MG 00:00: 00 Co Q10 100 Co Q10 100 No 1{table QD Co Q10 100 MG MG 10-18 t_with_ MG 00:00: a_meal} Fish Oil Fish Oil No 1{capsu QD Fish Oil 1000 MG 1000 MG 10-18 le} 1000 MG 00:00: 00 CholestOff CholestOff No CholestOff 450 MG 450 MG 7-09 450 MG 00:00: 00 Co Q10 100 Co Q10 100 No 1{table QD Co Q10 100 MG MG 7- t_with_ MG 00:00: a_meal} 00 Fish Oil Fish Oil No 1{capsu QD Fish Oil 1000 MG 1000 MG 7 le} 1000 MG 00:00: 00 CholestOff CholestOff No CholestOff 450 MG 450 MG 7- 450 MG 00:00: 00 Co Q10 100 Co Q10 100 No 1{table QD Co Q10 100 MG MG 7- t_with_ MG 00:00: a_meal} CholestOff CholestOff No CholestOff 450 MG 450 [...] 450 MG 7- 450 MG 00:00: 00 Co Q10 100 Co Q10 100 No 1{table QD Co Q10 100 MG MG 7- t_with_ MG 00:00: a_meal} 00 Fish Oil Fish Oil No 1{capsu QD Fish Oil 1000 MG 1000 MG 7- le} 1000 MG 00:00: 00 FLUZONE 2016- Yes IMMUNIZATI Univ ers HIGH-DOSE 0-16 ON [...] Medical mcg/0.5 mL Branch FLUZONE 2016-04 [facility] HIGH-DOSE 0-16 ON GIVEN ity of [...] MCG 50 MCG le} 50 MCG (1999) (1999 [place]) (1999) Multivitami Multivitami No 1{table QD Multivitam n Adult - n Adult - t} in Adult - Immunizations Ordered Filled Immunization Date Status Comments Sour e Immunization Name Name FLUZONE HIGH DOSE FLUZONE HIGH DOSE 2022-01-23 Completed [facility] - OVER 65 OVER 65 09:24:00 [facility] FLUZONE HIGH DOSE FLUZONE HIGH DOSE 2022-01-23 Completed [facility] - OVER 65 OVER 65 09:24:00 [facility] FLUZONE HIGH DOSE FLUZONE HIGH DOSE 2021-02-17 Completed [facility] - OVER 65 OVER 65 11:47:00 [facility] FLUZONE HIGH DOSE FLUZONE HIGH DOSE 2021-02-17 Completed [facility] - OVER 65 OVER 65 11:47:00 [facility] FLUZONE HIGH DOSE FLUZONE HIGH DOSE 2021-02-17 Completed [facility] - OVER 65 OVER 65 11:47:00 [facility] FLUZONE HIGH DOSE FLUZONE HIGH DOSE 2021-02-17 Completed [facility] - OVER 65 OVER 65 11:47:00 [facility] FLUZONE HIGH DOSE FLUZONE HIGH DOSE 2021-02-17 Completed [facility] - OVER 65 OVER 65 11:47:00 [facility] FLUZONE HIGH DOSE FLUZONE HIGH DOSE 2021-02-17 Completed [facility] - OVER 65 OVER 65 11:47:00 [facility] FLUZONE HIGH DOSE FLUZONE HIGH DOSE 2021-02-17 Completed [facility] - OVER 65 OVER 65 11:47:00 [facility] FLUZONE HIGH DOSE FLUZONE HIGH DOSE 2021-02-17 Completed [facility] - OVER 65 OVER 65 11:47:00 [facility] SARS-COV-2 COVID-19 2020-07-07 Completed Unive rsity of MODERNA 12+ YRS 00:00:00 [facility] ical VACCINE Branch SARS-COV-2 COVID-19 2020-07-07 Completed Unive rsity of MODERNA 12+ YRS 00:00:00 [facility] ical VACCINE Branch SARS-COV-2 COVID-19 2020-07-07 Completed [...] Spirit - -Pneumonia Vaccine -Pneumonia Vaccine 15:06:00 [facility] Prevnar 13 Prevnar 13 2017-10-18 Completed [facility] - -Pneumonia Vaccine -Pneumonia Vaccine 15:06:00 [facility] Prevnar 13 Prevnar 13 2017-10-18 Completed [facility] - -Pneumonia Vaccine -Pneumonia Vaccine 15:06:00 [facility] Prevnar 13 Prevnar 13 2017-10-18 Completed [facility] - -Pneumonia Vaccine -Pneumonia Vaccine 15:06:00 [facility] Prevnar 13 Prevnar 13 2017-10-18 Completed [facility] - -Pneumonia Vaccine -Pneumonia Vaccine 15:06:00 [facility] Prevnar 13 Prevnar 13 2017-10-18 Completed [facility] - -Pneumonia Vaccine -Pneumonia Vaccine 15:06:00 [facility] Prevnar 13 Prevnar 13 2017-10-18 Completed [facility] - -Pneumonia Vaccine -Pneumonia Vaccine 15:06:00 [facility] Prevnar 13 Prevnar 13 2017-10-18 Completed [facility] - -Pneumonia Vaccine -Pneumonia Vaccine 15:06:00 [facility] Prevnar 13 Prevnar 13 2017-10-18 Completed Common [facility] - -Pneumonia Vaccine -Pneumonia Vaccine 00:00:00 [facility] Vital Signs Vital Name Observation Time Observation Value Comments Source height 2022-02-04 16:00:00 68 [in_i] [facility] weight 2022-02-04 16:00:00 145 [lb_av] [facility] bmi 2022-02-04 16:00:00 22.04 kg/m2 [facility] height 2022-01-06 11:00:00 68 [in_i] [facility] weight 2022-01-06 11:00:00 146 [lb_av] [facility] temperature 2022-01-06 11:00:00 97.1 [degF] [facility] bmi 2022-01-06 11:00:00 22.2 kg/m2 [facility] oximetry 2022-01-06 11:00:00 100 % [facility] respiratory rate 2022-01-06 11:00:00 18 /min Comm on [facility] blood pressure 2022-01-06 11:00:00 131 mm[Hg] [facility] - systolic [facility] blood pressure 2022-01-06 11:00:00 63 mm[Hg] [facility] - diastolic [facility] height 2021-02-17 11:40:00 68 [in_i] [facility] weight 2021-02-17 11:40:00 161 [lb_av] [facility] temperature 2021-02-17 11:40:00 98.2 [degF] [facility] bmi 2021-02-17 11:40:00 24.48 kg/m2 [facility] Procedures Procedure Date / Time Performed Performing Clinician Sourc e OP CORRESPONDENCE 2022-02-02 05:01:00 Doctor Unassigned, No Univ ersity of [facility] HEALTH - OTHER 2022-01-08 05:01:00 Doctor Unassigned, No Un iversity of [facility] HEALTH - OTHER 2021-12-25 05:01:00 Doctor Unassigned, No Un iversity of [facility] HEALTH 485 2021-11-24 05:01:00 Doctor Unassigned, No Univer sity of [facility] Encounters Start End Encounter Admission Attending Care Care Encounter Source Date/Time Date/Time Type Type Clinicians Facility Department ID 2022-01-06 Outpatient Johanny [facility] [id number] Common 10:22:00 Micaela [id number] [facility] 2022-03-31 2022-03-31 Telephone Susi [facility] [id number] Univers 00:00:00 00:00:00 [facility] [id number] ity of [place] 4.2.7.2.686 [place] as GUME?BLEA [id number] [address] MEDICAL OFFICE BUILDING 2022-03-23 2022-03-23 Outpatient R STORM LIEBERMAN [facility] 10 [id number] Univers 14:00:00 14:08:55 STORM LIEBREMAN i ty of [facility] 2022-03-23 2022-03-23 Office ANNELIESE Lieberman [id number] Univers 14:00:00 14:08:[address] [facility] [id number] i ty of [facility] 4.2.7.2.686 [place] [id number] [address] 2022-02-27 2022-02-27 Telephone Susi [facility] [id number] Univers 00:00:00 00:00:00 [facility] [id number] ity of [facility] 4.2.7.2.686 [place] as GUME?BLEA [id number] [address] MEDICAL OFFICE BUILDING 2022-02-25 2022-02-25 [facility] [id number] Univers 00:00:00 00:00:00 [facility] [id number] ity of [place] 4.2.7.2.686 [place] as GUME?BLEA [id number] [address] 2022-02-24 2022-02-24 Telephone [facility] [id number] Univers 00:00:00 00:00:00 [facility] [id number] ity of [place] 4.2.7.2.686 [place] as GUME?BLEA [id number] [address] 2022-02-18 2022-02-18 Telephone [facility] [id number] Univers 00:00:00 00:00:00 [facility] [id number] ity of [place] 4.2.7.2.686 [place] as GUME?BLEA [id number] [address] 2022-02-17 2022-02-17 [facility] [id number] Univers 00:00:00 00:00:00 [facility] [id number] ity of [place] 4.2.7.2.686 [place] as GUME?BLEA [id number] [address] 2022-02-13 2022-02-13 Telephone [facility] [id number] Univers 00:00:00 00:00:00 [facility] [id number] ity of [place] 4.2.7.2.686 [place] as GUME?BLEA [id number] [address] 2022-02-09 2022-02-09 Telephone [facility] 1.2.840.114 [id number] Univers 00:00:00 00:00:00 [facility] [id number] ity of [place] 4.2.7.2.686 [place] as GUME?BLEA [id number] [address] 2022-02-05 2022-02-05 Telephone [facility] 1.2.840.114 [id number] Univers 00:00:00 00:00:00 [facility] [id number] ity of [place] 4.2.7.2.686 [place] as GUME?BLEA [id number] [address] OFFICE [facility] 2022-02-04 2022-02-04 [facility] [id number] Common 00:00:00 00:00:00 [facility] Spirit WELLNESS - CHI VISIT [facility] 2022-02-03 2022-02-03 Telephone [facility] 1.2.840.114 [id number] Univers 00:00:00 00:00:00 [facility] [id number] ity of [place] 4.2.7.2.686 [place] as GUME?BLEA [id number] [address] OFFICE [facility] 2022-02-02 2022-02-02 Orders Doctor KAMILAH [id number] [id number] Univers 00:00:00 00:00:00 Only Unassigned, MARLYN [id number] ity of [place] [facility] 4.2.7.2.686 [place] as [id number] [address] 2022-01-28 2022-01-28 Telephone [facility] 1.2.840.114 [id number] Univers 00:00:00 00:00:00 [facility] [id number] ity of [place] [id number] [address] 2022-01-27 2022-01-27 Telephone [facility] 1.2.840.114 [id number] Univers 00:00:00 00:00:00 [facility] [id number] ity of [place] 4.2.7.2.686 [place] as GUME?BLEA [id number] [address] OFFICE [facility] 2022-01-23 2022-01-23 [facility] [id number] Co mmon 00:00:00 00:00:00 VISIT Spirit ESTAB PT - CHI LEVEL 2 [facility] 2022-01-22 2022-01-22 Telephone [facility] [id number] Univers 00:00:00 00:00:00 [facility] [id number] ity of [place] [id number] [address] 2022-01-19 2022-01-19 Telephone [facility] 1.2.840.114 [id number] Univers 00:00:00 00:00:00 [facility] [id number] ity of [place] 4.2.7.2.686 [place] as GUME?BLEA [id number] [address] MEDICAL OFFICE [facility] 2022-01-19 2022-01-19 (TEL) [facility] [id number] Co mmon 00:00:00 00:00:00 Spirit - [facility] 2022-01-08 2022-01-08 Orders Doctor KAMILAH 1.2.840.114 [id number] Univers 00:00:00 00:00:00 Only Unassigned, MARLYN [id number] ity of [place] [facility] 4.2.7.2.686 [place] as [phone] [address] 2022-01-06 2022-01-06 OFFICE [facility] [id number] Co mmon 00:00:00 00:00:00 VISIT EST Spir it PT LEVEL 3 - [facility] 2022-01-01 2022-01-01 Telephone [facility] 1.2.840.114 [id number] Univers 00:00:00 00:00:00 [facility] [id number] ity of [place] 4.2.7.2.686 [place] as GUME?BLEA [phone] [address] MEDICAL OFFICE [facility] 2021-12-25 2021-12-25 Orders Doctor KAMILAH 1.2.840.114 [id number] Univers 00:00:00 00:00:00 Only Unassigned, MARLYN [id number] ity of [place] [facility] 4.2.7.2.686 [place] as [phone] [address] 2021-12-24 2021-12-24 Telephone Susi NJLUIS ANTONIO 1.2.840.114 [id number] Univers 00:00:00 00:00:00 [facility] [id number] ity of [place] 4.2.7.2.686 [place] as GUME?BLEA [phone] [address] MEDICAL OFFICE BUILDING 2021-12-24 2021-12-24 Patient Darian [facility] 1.2.840.114 [id number] Univers 00:00:00 00:00:00 [facility] [id number] i ty of [place] 4.2.7.2.686 [place] as GUME?BLEA [phone] [address] OFFICE [facility] 2021-12-24 2021-12-24 Patient Darian [facility] 1.2.840.114 [id number] Univers 00:00:00 00:00:00 [facility] [id number] i ty of [place] 4.2.7.2.686 [place] as GUME?BLEA [phone] [address] OFFICE [facility] 2021-12-16 2021-12-16 Office Susi [facility] 1.2.840.114 [id number] Univers 10:40:00 13:01:52 Visit [facility] [id number] ity of [place] 4.2.7.2.686 [place] GUME?BLEA [phone] [address] OFFICE [facility] 2021-12-16 2021-12-16 Outpatient DOUGLAS COLLINS [facility] [id number] Univers 10:40:00 13:01:52 DOUGLAS GOLDMAN [facility] 2021-12-16 2021-12-16 Outpatient DOUGLAS COLLINS [facility] [id number] Univers 10:40:00 10:40:00 DOUGLAS GOLDMAN [facility] 2021-12-16 2021-12-16 Orders Doctor KAMILAH 1.2.840.114 [id number] Univers 00:00:00 00:00:00 Only Unassigned, MARLYN 350.1.13.10 ity of [place] [facility] 4.2.7.2.686 [place] as [phone] [address] 2021-12-16 2021-12-16 [facility] 1.2.840.114 [id number] Univers 00:00:00 00:00:00 [facility] [id number] [facility] 4.2.7.2.686 [place] GUME?BLEA [phone] [address] OFFICE [facility] 2021-12-16 2021-12-16 [facility]phone [facility] 1.2.840.114 [id number] Univers 00:00:00 00:00:00 [facility] [id number] [facility] 4.2.7.2.686 [place] GUME?BLEA [phone] [address] OFFICE [facility] 2021-12-16 2021-12-16 [facility] 1.2.840.114 [id number] Univers 00:00:00 00:00:00 [facility] [id number] [facility] 4.2.7.2.686 [place] GUME?BLEA [phone] [address] OFFICE [facility] 2021-11-24 2021-11-24 Orders Doctor TRIANA 1.2.840.114 [id number] Univers 00:00:00 00:00:00 Only Unassigned, MARLYN [id number] ity of [place] [facility] 4.2.7.2.686 [place] as [phone] [address] 2021-09-15 2021-09-15 Office ANNELIESE Lieberman 1.2.274.575 [id number] Univers 15:15:00 15:44:33 Visit [facility] [id number] i ty [place] [phone] [address] 2021-09-15 2021-09-15 Outpatient R STORM LIEBERMAN [facility] 10 [id number] Univers 15:15:00 15:44:33 STORM LIEBERMAN i ty of [facility] 2021-09-15 2021-09-15 Outpatient R STORM LIEBERMAN [facility] 10 [id number] Univers 15:15:00 15:15:00 LUISANAKPNT yogesh ty of [facility] 2021-09-15 2021-09-15 Outpatient R STORM LIEBERMAN [facility] 10 [id number] Univers 15:15:00 15:15:00 STORM LIEBERMAN i ty [facility] 2021-08-14 2021-08-14 [facility] 1.2.840.114 [id number] Univers 00:00:00 00:00:00 [facility] [id number] ity of [place] 4.2.7.2.686 [place] GUME?BLEA [phone] Mn ericil [address] MEDICAL OFFICE BUILDING 2021-08-04 2021-08-04 Outpatient R STORM LIEBERMAN [facility] 10 [id number] Univers 14:00:00 14:00:00 STORM LIEBERMAN i [facility] 2021-05-27 2021-05-27 (TEL) [facility] [id number] Co mmon 00:00:00 00:00:00 [facility] 2021-03-28 2021-03-28 Orders Doctor TRIANA 1.2.840.114 [id number] Univers 00:00:00 00:00:00 Only Unassigned, MARLYN 350.1.13.10 [place]y of [place] [facility] 4.2.7.2.686 [place] as [phone] [facility] [address] 2021-02-19 2021-02-19 Telephone Susi [facility] 1.2.840.114 [id number] Univers 00:00:00 00:00:00 Douglas [facility] [id number] it[place] of [place] [phone] Mn dicdarnell ALEXANDRE [address] BUILDING 2021-02-17 2021-02-17 [facility] [id number] Co mmon 00:00:00 00:00:00 VISIT David BRASWELL PT - CHI LEVEL 1 [facility] 2021-02-03 2021-02-03 Outpatient STORM KOROMA [facility] 10 [id number] Univers 14:30:00 14:54:02 STORM LIEBERMAN i ty of [facility] 2021-02-03 2021-02-03 Office ANNELIESE Lieberman 1.2.715.482 [id number] Univers 14:10:34 14:54:[address] [facility] 350.1.13.10 i ty of [facility] 4.2.7.2.[place] [phone] [address] 2020-12-20 2020-12-20 Refcarmelina [facility] 1.2.840.114 [id number] Univers 00:00:00 00:00:00 [facility] [id number] ity of [place] 4.2.7.2.686 [place] Gume?Blea [phone] [address] Office [facility] 2020-12-13 2020-12-13 Office Susi [facility] 1.2.840.114 [id number] Univers 10:22:10 13:17:22 Visit Douglas [facility] [id number] ity of [place] 4.2.7.2.686 [place] Gume?Blea [phone] [address] Office [facility] 2020-12-13 2020-12-13 Outpatient DOUGLAS COLLINS [facility] [id number] Univers 10:40:00 10:40:00 DOUGLAS GOLDMAN ity [facility] 2020-12-04 2020-12-04 [facility] [id number] Common 00:00:00 00:00:00 Spirit - [facility] 2020-11-19 2020-11-19 [facility]ill [facility] 1.2.840.114 [id number] Univers 00:00:00 00:00:00 [facility] 350.1.13.10 ity of [place] [phone] Mn dical nal 092 [facility] 2020-11-19 2020-11-19 [facility] 1.2.840.114 [id number] Univers 00:00:00 00:00:00 Douglas Castorena 350.1.13.10 ity of [place] [phone] Mn dical nal 092 [facility] 2020-11-06 2020-11-06 Office Bucky [facility] 1.2.077.034 [id number] Univers 12:46:02 13:16:02 Visit Luisana Cohen 350.1.13.10 it y of [facility] 4.2.7.2.686 [place] as BANK [phone] [facility] BLDG. [address] [place] 2020-11-06 2020-11-06 Outpatient R BUCKY [facility] [id number] Univers 13:00:00 13:00:00 LUISANA phan [facility] 2020-10-25 2020-10-25 Telephone [facility] 1.2.840.114 [id number] Univers 00:00:00 00:00:00 Douglas Castorena 350.1.13.10 ity of [place] [phone] [facility] nal 092 [facility] 2020-10-24 2020-10-24 [facility] 1.2.038.342 [id number] Univers 09:53:57 23:59:00 Encounter Douglas Castorena 350.1.13.10 ity of [place].2.7.2.686 [place] [phone] [facility] [address] [place] 2020-10-24 2020-10-24 Outpatient DOUGLAS COLLINS [facility] [id number] Univers 00:00:00 00:00:00 DOUGLAS GOLDMAN [facility] 2020-10-24 2020-10-24 Telephone [facility] 1.2.840.114 [id number] Univers 00:00:00 00:00:00 Douglas Castorena 350.1.13.10 ity of [place] [phone] [address] 2020-10-18 2020-10-18 Office Susi, [facility] 1.2.840.114 [id number] Univers 08:06:15 09:22:13 Visit Douglas Gasper Castorena 350.1.13.10 ity of [place]2.7.2.[place] [phone] [address] 2020-10-18 2020-10-18 Outpatient R DOUGLAS GOLDMAN [facility] [id number] Univers 08:00:00 08:00:00 DOUGLAS GOLDMAN ity of [facility] 2020-10-18 2020-10-18 Orders Doctor KAMILAH Wray2.840.114 [id number] Univers 00:00:00 00:00:00 Only Unassigned, MARLYN 350.1.13.10 ity of [place] [facility] 4.2.7.2.686 [place] as [phone] [address] 2020-10-10 2020-10-10 Orders Doctor KAMILAH 1.2.840.114 [id number] Univers 00:00:00 00:00:00 Only Unassigned, MARLYN 350.1.13.10 ity of [place] [facility] 4.2.7.2.686 [place] [phone] [address] 2020-10-09 2020-10-09 Outpatient STLMLC [facility] [id number] Common 00:00:00 00:00:00 [facility] 2020-10-02 2020-10-02 Outpatient STLMLC ST[facility] [id number] Common 00:00:00 00:00:00 [facility] 2020-10-01 2020-10-01 Orders Doctor KAMILAH Wray2.840.114 [id number] Univers 00:00:00 00:00:00 Only Unassigned, MARLYN 350.1.13.10 ity of [place] [facility] 4.2.7.2.686 [place] as [phone] [address] 2020-09-04 2020-09-04 Orders Doctor KAMILAH 1.2.840.114 [id number] Univers 00:00:00 00:00:00 Only Unassigned, MARLYN 350.1.13.10 [facility] 4.2.7.2.686 [place] [phone] [address] 2020-08-14 2020-08-14 Outpatient STLMLC ST[facility] [id number] Common 00:00:00 00:00:00 [facility] 2020-08-05 2020-08-05 Orders Doctor KAMILAH 1.2.840.114 [id number] Univers 00:00:00 00:00:00 Only Unassigned, MARLYN 350.1.13.10 [facility] 4.2.7.2.686 [place] [phone] [address] 2020-07-30 2020-07-30 Outpatient Fantasma FREEDMAN [facility] [id number] Univers 16:15:00 16:15:00 [facility] 2020-07-30 2020-07-30 Office [facility] 1.2.840.114 [id number] Univers 15:50:12 16:05:12 Visit Briana [facility] 350.1.13.10 it y of Surgical 4.2.7.2.686 [place] as Specialti [phone] Mn dical es 198 [facility] 2020-07-07 2020-07-07 Outpatient [facility] [id number] Univers 12:10:00 12:10:00 ity [facility] 2020-06-09 2020-06-09 Outpatient [facility] [id number] Univers 12:15:00 12:15:00 ity [facility] 2020-02-05 2020-02-05 Office ANNELIESE Lieberman 1.2.934.006 [id number] Univers 14:04:21 14:55:02 Visit Storm [facility] 350.1.13.10 i ty of [place] [phone] [address] 2020-02-05 2020-02-05 Outpatient STORM KOROMA [facility] 10 [id number] Univers 14:00:00 14:00:00 STORM LIEBERMAN i ty [facility] 2020-02-05 2020-02-05 Outpatient R STORM LIEBERMAN [facility] 10 [id number] Univers 14:00:00 14:00:00 STORM LIEBERMAN i ty [facility] 2019-11-08 2019-11-08 [facility] [id number] Common 15:00:00 15:00:00 [facility] it Road [facility] 2019-10-31 2019-10-31 Outpatient [facility] [id number] Common 11:00:00 11:00:00 [facility] it Road [facility] 2019-10-09 2019-10-09 [facility] 1.2.840.114 [id number] Univers 12:43:00 23:59:00 Encounter Alexandre Rios [place] 350.1.13.10 ity [facility] 4.2.7.2.686 [facility] [phone] [facility] [address] [place] [address] 2019-10-09 2019-10-09 Outpatient R JASMINA [facility] [id number] Univers 13:45:00 13:45:00 BRIANA phan [facility] 2019-10-09 2019-10-09 Office [facility] 1.2.840.114 [id number] Univers 13:12:43 13:27:43 Visit [facility] 350.1.13.10 it y of Surgical 4.2.7.2.686 [place] Specialti [phone] Mn dical es 198 [facility] 2019-10-09 2019-10-09 Telephone [facility] 1.2.840.114 [id number] Univers 00:00:00 00:00:00 Alexandre [facility] [id number] it y of Surgical 4.2.7.2.686 [place] Specialti [phone] Mn dical es 198 [facility] 2019-10-09 2019-10-09 Orders Doctor TRIANA 1.2.840.114 [id number] Univers 00:00:00 00:00:00 Only Unassigned, MARLYN 350.1.13.10 ity of [place] [facility] 4.2.7.2.686 [place] as [phone] [place] [address] [address] 2018-11-01 2018-11-01 [facility] [id number] Common 16:40:00 16:40:[address] [facility] 2018-10-21 2018-10-21 Out[facility] [id number] Common 14:56:00 14:56:[address] [facility] 2018-10-18 2018-10-18 Outpatient [facility] [id number] Common 09:15:00 09:15:[address] [facility] 2018-04-27 2018-04-27 Outpatient [facility] [id number] Common 10:30:00 10:30:[address] [facility] 2017-11-09 2017-11-09 Out[facility] [id number] Common 10:15:00 10:15:00 t Specialty/U Sp anna Specialty rology - [facility] /[facility] 2017-10-20 2017-10-20 Outpatient [facility] [id number] Common 10:02:00 10:02:[address] [facility] 2017-10-18 2017-10-18 Outpatient [facility] [id number] Common 14:30:00 14:30:[address] [facility] Results This patient has no known results.
[2022-04-25] MEDS ORDERED: THIAMINE 200 MG/2 ML INJ ONE (09:43)
[2022-04-25] MEDS ORDERED: NA CHLORIDE 0.9% 500 ML ONE (09:44)
[2022-04-25] MEDS ORDERED: CEFTRIAXONE 1000 MG/VIAL ONE (09:44)
[2022-04-25] MEDS ORDERED: MULTIVITAMINS 10 ML VIAL (INJ) IV ONE (09:45)
[2022-04-25] MEDS ORDERED: FOLIC ACID 5 MG/ML VIAL ONE (09:45)
[2022-04-25] MEDS ORDERED: NA CHLORIDE 0.9% 1,000 ML ONE (09:45)
[2022-04-25 10:01] LABS: Hematocrit 38.4 % (39.6-49.0); Lymphocytes % 9.6 % (15.3-44.8); MCV 91.3 fL (80-100); Protime INR 1.15; RBC Red Blood Cell Count 4.21 M/uL (4.33-5.43)
--- NOTE | 2022-04-25 10:02 | RAD REPORT ---
EXAM DESCRIPTION: RAD - Chest Single View - 04/25/2022 9:32 am CLINICAL HISTORY: COUGH COMPARISON: <Comparisons> FINDINGS: Lines: None. Lungs: No evidence of edema or pneumonia. Pleural: No significant pleural effusions or pneumothorax. Cardiac: The heart size is within normal limits. Mediastinum: Within normal limits. Bones: No acute fractures. Other: None IMPRESSION: No acute cardiopulmonary disease.
--- NOTE | 2022-04-25 10:06 | RAD REPORT ---
EXAM DESCRIPTION: CT - Head Brain Wo Cont - 04/25/2022 9:47 am CLINICAL HISTORY: Mental status change, persistent or worsening COMPARISON: No comparisons TECHNIQUE: All CT scans are performed using dose optimization technique as appropriate and may inclu de automated exposure control or mA/KV adjustment according to patient size. FINDINGS: No intracranial hemorrhage, hydrocephalus or extra-axial fluid collection.No areas of brai n edema or evidence of midline shift. Mild chronic small vessel ischemic changes. Mild cerebral atrop hy. The paranasal sinuses and mastoids are clear. The calvarium is intact. IMPRESSION: No acute intracranial abnormality.
--- NOTE | 2022-04-25 10:11 | ER ---
Nurse's Notes [facility] Name: Paras Díaz Age: 72 yrs Sex: Male : 1950 Arrival Date: 04/25/2022 Time: 09:14 Bed 7 Private MD: Diagnosis: Dementia in other diseases classified elsewhere without behavioral disturbance;Epileptic seizures related to external causes, not intractable;Altered mental status, unspecified Presentation: 04/25 09:17 Chief complaint: EMS states: SO states that she was lying in bed w/ him this morning ph when he began to have tremors and decreased LOC, hx of dementia but reports that he has been more confused than usual, also had 2 episodes of vomiting, VSS FSBG 140s. Coronavirus screen: Vaccine status: Patient reports receiving the 2nd dose of the covid vaccine. Ebola Screen: No symptoms or risks identified at this time. Initial Sepsis Screen: Does the patient meet any 2 criteria? No. Patient's initial sepsis screen is negative. Does the patient have a suspected source of infection? No. Patient's initial sepsis screen is negative. Risk Assessment: Do you want to hurt yourself or someone else? Patient reports no desire to harm self or others. Onset of symptoms was April 25, 2022. 09:17 Method Of Arrival: EMS: [facility] 09:17 Acuity: ADRIÁN 3 ph Triage Assessment: :21 General: Appears in no apparent distress. well groomed, Behavior is quiet. Pain: Unable ph to use pain scale. Does not appear to understand pain scale. Neuro: Level of Consciousness is awake, alert, Oriented to person. Cardiovascular: Capillary refill < 3 seconds in bilateral fingers Patient's skin is warm and dry. Respiratory: Airway is patent Respiratory effort is even, unlabored, Respiratory pattern is regular, symmetrical. GI: Parent/caregiver reports the patient having vomiting. Derm: Skin is pink, warm \T\ dry. Musculoskeletal: Circulation, motion, and sensation intact. Range of motion: intact in all extremities. Historical: - Allergies: 09:20 No Known Allergies; ph - PMHx: 09:20 Dementia; ph - Immunization history:: Adult Immunizations unknown. - Social history:: Smoking status: unknown. - Family history:: not pertinent. Screenin:23 [facility] ED Fall Risk Assessment (Adult) History of falling in the last 3 months, ph including since admission Yes- physiologic fall (2 pts) Confusion or Disorientation Yes (5 pts) Intoxicated or Sedated No (0 pts) Impaired Gait Yes (1 pt) Mobility Assist Device Used Yes (1 pt) Altered Elimination Yes (1 pt) Score/Fall Risk Level 3 or more points = High Risk Oriented to surroundings, Maintained a safe environment, Activated bed/chair alarm, Remained w/in arm's length of patient and in sight while toileting, Offered frequent toileting (1:1 observation), Remained with patient while ambulating. Abuse screen: Denies threats or abuse. Denies injuries from another. 09:24 Nutritional screening: No deficits noted. Tuberculosis screening: No symptoms or risk ph factors identified. Assessment: 09:25 Reassessment: SEE TRIAGE ASSESSMENT. ph 11:00 Reassessment: Patient appears in no apparent distress at this time. No changes from ph previously documented assessment. Patient and/or family updated on plan of care and expected duration. Pain level reassessed. 12:00 Reassessment: Patient appears in no apparent distress at this time. No changes from ph previously documented assessment. Patient and/or family updated on plan of care and expected duration. Pain level reassessed. 14:47 Reassessment: Patient appears in no apparent distress at this time. Patient and/or ph family updated on plan of care and expected duration. Pain level reassessed. Pt more alert, speaking to family at bedside. 15:34 Reassessment: Patient appears in no apparent distress at this time. No changes from ph previously documented assessment. Patient and/or family updated on plan of care and expected duration. Pain level reassessed. Report called to BIPIN Ross. Vital Signs: 09:17 BP 117 / 77; Pulse 79; Resp 20; Temp 98.5; Pulse Ox 97% on R/A; Weight 70.31 kg; Height ph 5 ft. 9 in. (175.26 cm); 10:30 BP 108 / 68; Pulse 87; Resp 18; Pulse Ox 99% on R/A; ph 11:30 BP 117 / 72; Pulse 86; Resp 18; Pulse Ox 98% on R/A; ph 12:30 BP 113 / 71; Pulse 81; Resp 18; Pulse Ox 99% on R/A; ph 13:30 BP 115 / 78; Pulse 81; Resp 18; Pulse Ox 99% on R/A; ph 14:41 BP 110 / 69; Pulse 82; Resp 18; Temp 97.8; Pulse Ox 100% on R/A; ph 09:17 Body Mass Index 22.89 (70.31 kg, 175.26 cm) ph ED Course: 09:14 Patient arrived in ED. eb 09:17 Raine Navarrete RN is Primary Nurse. ph 09:18 Lloyd Hoang MD is Attending Physician. joesph 09:20 Triage completed. ph 09:23 Arm band placed on Patient placed in an exam room. ph 09:23 Patient has correct armband on for positive identification. Bed in low position. Call ph light in reach. Side rails up X2. Client placed on continuous cardiac and pulse oximetry monitoring. NIBP monitoring applied. Door closed. Noise minimized. Warm blanket given. 09:34 XRAY Chest (1 view) In Process Unspecified. EDMS 09:40 Initial lab(s) drawn, by co, sent to lab. First set of blood cultures drawn. Inserted ph saline lock: 20 gauge in right forearm, using aseptic technique. Blood collected. 09:49 CT Head Brain wo Cont In Process Unspecified. EDMS 10:10 Valeriy Jung is Hospitalizing Provider. joesph 14:33 No provider procedures requiring assistance completed. Patient admitted, IV remains in ph place. Administered Medications: 09:28 Not Given (Duplicate Order): NS 0.9% 1000 ml IV at 125 ml/hr continuous joesph 09:45 Drug: NS 0.9% 500 ml Route: IV; Rate: bolus; Site: right forearm; hb 11:00 Follow up: Response: No adverse reaction; IV Status: Completed infusion ph 09:45 Drug: Thiamine 100 mg Route: IV; Rate: per protocol; Site: right forearm; hb 14:48 Follow up: Response: No adverse reaction; IV Status: Completed infusion ph 09:45 Drug: Banana Bag - (NS 0.9% 1000 ml, foLIC Acid 1 mg, Thiamine 100 mg, Multivitamin 1 hb amp) Route: IV; Rate: 125 ml/hr; Site: right forearm; 14:48 Follow up: IV Status: Infusion continued upon admission ph 11:16 Drug: Rocephin (cefTRIAXone) 1 grams Route: IV; Rate: per protocol; Site: right forearm;hb 12:00 Follow up: Response: No adverse reaction; IV Status: Completed infusion ph Medication: 09:24 VIS not applicable for this client. ph Outcome: 10:11 Decision to Hospitalize by Provider. joesph 15:34 Admitted to Med/surg accompanied by tech, family with patient, via stretcher, room 415, ph with chart. 15:34 Condition: stable 15:34 Instructed on the need for admit. 15:48 Patient left the ED. ph Signatures: Dispatcher [employer] EDLloyd Minaya MD MD cha Hall, Patricia, RN RN Krissy Lucero RN RN Bri Bonds
--- NOTE | 2022-04-25 10:12 | EDPHYS ---
Physician Documentation [facility] Name: Paras Díaz Age: 72 yrs Sex: Male : 1950 Arrival Date: 04/25/2022 Time: : Bed 7 Private MD: ED Physician Lloyd Hoang HPI: 04/25 09:31 This 72 yrs old Male presents to ER via EMS with complaints of ams, seizure joesph activity. 09:31 The patient's problem is reported as an apparent seizure, weakness, that is joesph generalized. Onset: The symptoms/episode began/occurred this morning, today. Duration: This was a single incident. Context: the episode(s) was witnessed, by family, . The symptoms are alleviated by nothing. The symptoms are aggravated by nothing. Possible causes: CVA or TIA, low blood sugar, seizure. Seizure onset: just prior to arrival, this morning. Historical: - Allergies: 09:20 No Known Allergies; ph - PMHx: 09:20 Dementia; ph - Immunization history:: Adult Immunizations unknown. - Social history:: Smoking status: unknown. - Family history:: not pertinent. ROS: 09:31 Constitutional: Negative for fever, chills, and weight loss, Eyes: Negative for injury, joesph pain, redness, and discharge, ENT: Negative for injury, pain, and discharge, Neck: Negative for injury, pain, and swelling, Cardiovascular: Negative for chest pain, palpitations, and edema, Respiratory: Negative for shortness of breath, cough, wheezing, and pleuritic chest pain, Abdomen/GI: Negative for abdominal pain, nausea, vomiting, diarrhea, and constipation, Back: Negative for injury and pain, : Negative for injury, bleeding, discharge, and swelling, MS/Extremity: Negative for injury and deformity, Skin: Negative for injury, rash, and discoloration, Psych: Negative for depression, anxiety, suicide ideation, homicidal ideation, and hallucinations, Allergy/Immunology: Negative for hives, rash, and allergies, Endocrine: Negative for neck swelling, polydipsia, polyuria, polyphagia, and marked weight changes, Hematologic/Lymphatic: Negative for swollen nodes, abnormal bleeding, and unusual bruising. 09:31 Neuro: Positive for altered mental status, seizure activity, weakness. Exam: :31 Constitutional: This is a well developed, well nourished patient who is awake, alert, joesph and in no acute distress. Head/Face: Normocephalic, atraumatic. Eyes: Pupils equal round and reactive to light, extra-ocular motions intact. Lids and lashes normal. Conjunctiva and sclera are non-icteric and not injected. Cornea within normal limits. Periorbital areas with no swelling, redness, or edema. ENT: Nares patent. No nasal discharge, no septal abnormalities noted. Tympanic membranes are normal and external auditory canals are clear. Oropharynx with no redness, swelling, or masses, exudates, or evidence of obstruction, uvula midline. Mucous membranes moist. Neck: Trachea midline, no thyromegaly or masses palpated, and no cervical lymphadenopathy. Supple, full range of motion without nuchal rigidity, or vertebral point tenderness. No Meningismus. Chest/axilla: Normal chest wall appearance and motion. Nontender with no deformity. No lesions are appreciated. Cardiovascular: Regular rate and rhythm with a normal S1 and S2. No gallops, murmurs, or rubs. Normal PMI, no JVD. No pulse deficits. Respiratory: Lungs have equal breath sounds bilaterally, clear to auscultation and percussion. No rales, rhonchi or wheezes noted. No increased work of breathing, no retractions or nasal flaring. Abdomen/GI: Soft, non-tender, with normal bowel sounds. No distension or tympany. No guarding or rebound. No evidence of tenderness throughout. Back: No spinal tenderness. No costovertebral tenderness. Full range of motion. Male : Normal genitalia with no discharge or lesions. Skin: Warm, dry with normal turgor. Normal color with no rashes, no lesions, and no evidence of cellulitis. MS/ Extremity: Pulses equal, no cyanosis. Neurovascular intact. Full, normal range of motion. Psych: Awake, alert, with orientation to person, place and time. Behavior, mood, and affect are within normal limits. 09:31 Neuro: Orientation: unable to test, Mentation: appropriate for stated age, Memory: unable to test, Cranial nerves: is grossly normal based on the patient's age, no acute changes, Cerebellar function: unable to test, Motor: moves all fours, Sensation: unable to test, Gait: not tested. seizure activity, is not displayed by the patient. 09:41 Radiologist reports: nad, old changes joesph 10:41 ECG was reviewed by the Attending Physician. joesph Vital Signs: 09:17 BP 117 / 77; Pulse 79; Resp 20; Temp 98.5; Pulse Ox 97% on R/A; Weight 70.31 kg; Height ph 5 ft. 9 in. (175.26 cm); 10:30 BP 108 / 68; Pulse 87; Resp 18; Pulse Ox 99% on R/A; ph 11:30 BP 117 / 72; Pulse 86; Resp 18; Pulse Ox 98% on R/A; ph 12:30 BP 113 / 71; Pulse 81; Resp 18; Pulse Ox 99% on R/A; ph 13:30 BP 115 / 78; Pulse 81; Resp 18; Pulse Ox 99% on R/A; ph 14:41 BP 110 / 69; Pulse 82; Resp 18; Temp 97.8; Pulse Ox 100% on R/A; ph 09:17 Body Mass Index 22.89 (70.31 kg, 175.26 cm) ph MDM: 09:18 Patient medically screened. joesph 09:41 Differential diagnosis: CVA, TIA, Dementia, Alzheimer disease, Parkinson disease, joesph metabolic disorder. Differential Diagnosis: CVA, electrolyte abnormality, hypoglycemia, intracranial bleed, seizure, sepsis, UTI, volume depletion, cerebral vascular accident, cardiac arrhythmia, seizure, TIA. Data reviewed: vital signs, nurses notes, EMS record, lab test result(s), EKG, radiologic studies, CT scan. Consideration of Admission/Observation Patient was admitted/placed on observation. Escalation of care including admission/observation considered. Management of patient was discussed with the following: Hospitalist: hospitalist and dr murillo. Test considered but Not performed: MRI: mri not done. ED course: dementia. 04/25 09:23 Order name: Basic Metabolic Panel; Complete Time: 11:12 [facility] 04/25 09:23 Order name: CBC with Diff; Complete Time: 11:12 [facility] 04/25 09:23 Order name: LFT's; Complete Time: 11:12 joesph 04/25 09:23 Order name: Magnesium; Complete Time: 11:12 joesph 04/25 09:23 Order name: NT PRO-BNP; Complete Time: 11:12 [facility] 04/25 09:23 Order name: PT-INR; Complete Time: 10:02 04/25 09:23 Order name: Troponin HS; Complete Time: 11:12 04/25 09:23 Order name: Urine Microscopic Only 04/25 09:23 Order name: Blood Culture Adult (2) 04/25 09:23 Order name: Lactate w/ 2H reflex if indic.; Complete Time: 11:12 04/25 09:23 Order name: COVID-19/FLU A+B; Complete Time: 11:12 [facility] 04/25 11:19 Order name: Urine Dipstick-Ancillary [facility] 04/25 12:09 Order name: Procalcitonin [facility] 04/25 12:19 Order name: Creatine Phosphokinase [facility] 04/25 09:23 Order name: XRAY Chest (1 view); Complete Time: 10:09 04/25 09:23 Order name: EKG; Complete Time: 09:24 04/25 09:23 Order name: Cardiac monitoring; Complete Time: 09:24 04/25 09:23 Order name: EKG - Nurse/Tech; Complete Time: 09:52 04/25 09:23 Order name: IV Saline Lock; Complete Time: 09:46 04/25 09:23 Order name: Labs collected and sent; Complete Time: 09:46 04/25 09:23 Order name: O2 Per Protocol; Complete Time: 09:24 04/25 09:23 Order name: O2 Sat Monitoring; Complete Time: 09:24 04/25 09:23 Order name: CT Head Brain wo Cont; Complete Time: 10:09 04/25 09:23 Order name: Urine Dipstick-Ancillary (obtain specimen); Complete Time: 11:17 [facility] EC:41 Rate is 81 beats/min. Rhythm is regular. QRS Eldred is Normal. NC interval is normal. QRS joesph interval is normal. QT interval is normal. No Q waves. Clinical impression: NSR w/ Non-specific ST/T Changes and No evidence of ischemia. Interpreted by me. Reviewed by me. Administered Medications: 09:28 Not Given (Duplicate Order): NS 0.9% 1000 ml IV at 125 ml/hr continuous joesph 09:45 Drug: NS 0.9% 500 ml Route: IV; Rate: bolus; Site: right forearm; hb 11:00 Follow up: Response: No adverse reaction; IV Status: Completed infusion ph 09:45 Drug: Thiamine 100 mg Route: IV; Rate: per protocol; Site: right forearm; hb 14:48 Follow up: Response: No adverse reaction; IV Status: Completed infusion ph 09:45 Drug: Banana Bag - (NS 0.9% 1000 ml, foLIC Acid 1 mg, Thiamine 100 mg, Multivitamin 1 hb amp) Route: IV; Rate: 125 ml/hr; Site: right forearm; 14:48 Follow up: IV Status: Infusion continued upon admission ph 11:16 Drug: Rocephin (cefTRIAXone) 1 grams Route: IV; Rate: per protocol; Site: right forearm;hb 12:00 Follow up: Response: No adverse reaction; IV Status: Completed infusion ph Disposition Summary: 04/25/22 10:11 Hospitalization Ordered Hospitalization Status: Observation joesph Provider: Valeriy Jung cha Location: Telemetry/MedSurg (observation) joesph Condition: Fair joesph Problem: new joesph Symptoms: have improved joesph Bed/Room Type: Standard [facility] Room Assignment: [id number](04/25/22 14:11) eb Diagnosis - Dementia in other diseases classified elsewhere without behavioral disturbance joesph - Epileptic seizures related to external causes, not intractable joesph - Altered mental status, unspecified joesph Forms: - Medication Reconciliation Form joesph - SBAR form joesph Signatures: Dispatcher [employer] EDLloyd Minaya MD MD cha Waters, Shelly, MACHINE JOINT CUTTER-C MACHINE JOINT CUTTER-Csnw Raine Navarrete RN RN Krissy Lagos RN RN hb Botello, Elizabeth eb Corrections: (The following items were deleted from the chart) 14:11 10:11 joesph eb
[2022-04-25 10:28] LABS: Albumin 3.1 g/dL (3.4-5.0); Bilirubin Direct 0.2 mg/dL (0-0.2); Bilirubin Total 0.7 mg/dL (0.2-1.0); Magnesium 2.4 mg/dL (1.6-2.4); Potassium 4.1 mmol/L (3.5-5.1); Protein, Total 6.1 g/dL (6.4-8.2); Troponin High Sensitivity 6.3 pg/mL (<58.9)
[2022-04-25 10:32] LABS: SARS-COV-2 RT PCR NEGATIVE (NEGATIVE)
[2022-04-25] MEDS ORDERED: ONDANSETRON 4 MG/2 ML VIAL IV PRN (10:54)
[2022-04-25] MEDS ORDERED: ACETAMINOPHEN 500 MG TAB PO PRN (10:54)
[2022-04-25] MEDS: NA CHLORIDE 0.9% 1,000 ML IV SCH ×2 (11:00→17:34)
--- NOTE | 2022-04-25 11:06 | P.HP ---
Certification for Inpatient Patient admitted to: Observation With expected LOS: <2 Midnights Patient will require the following post-hospital care: None Practitioner: I am a practitioner with admitting privileges, knowledge of patient current condition, hospital course, and medical plan of care. Services: Services provided to patient in accordance with Admission requirements found in Title 42 Section 412.3 of the Code of Federal Regulations Patient History Date of Service: 04/25/22 Reason for admission: New seizure, AMS History of Present Illness: 72-year-old male with past medical history of dementia. Patient presents to the emergency room via EMS with complaints of altered mental status and seizure-like activities. Patient was evaluated in the ER, with at the bedside. Patient is cognitively impaired due to dementia. Review of system and history obtained from . Per , around 7 AM this morning, she turned over to look at her , she noticed that his arms were twitching and he was shaking and was making "weird sounds". She states it looks like he was having a seizure, which lasted for 20 seconds. She reports that her was not responsive and he went back to sleep. She denies any foaming at the mouth. She denies any other contributing symptoms. EMS was called to the house and patient was taken to the emergency room. Patient will be admitted under the care of Dr. Jung. Neurology will be consulted for further recommendations. Seizure precautions in place. Allergies No Known Allergies Allergy (Unverified 11/26/17 07:56) Home medications list reviewed: Yes Home Medications: Fiber [Fiber Diet] 1 each PO DAILY 11/26/17 Krill/Om-3/Dha/Epa/Phospho/Ast [Megared [place]-3 Krill Oil Sfgl] 1 each PO DAILY 11/26/17 Multivit-Min/FA/Lycopen/Lutein [Men 50 Plus Multivitamin Tab] 1 tab PO DAILY 11/26/17 Plant Stanol Tracy [Cholest Off] 450 mg PO DAILY 11/26/17 Ubidecarenone [Co Q-10] 100 mg PO DAILY 11/26/17 - Past Medical/Surgical History -: Dementia Past Surgical History: Reviewed- Non-Contributory - Family History Family History: Reviewed- Non-Contributory - Social History Smoking Status: Never smoker Alcohol use: No CD- Drugs: No Caffeine use: No Place of Residence: Home Review of Systems General: Weakness Genitourinary: Incontinence Neurological: Weakness, Seizures Physical Examination - Vital Signs Temperature: 98.5 F Blood Pressure: 117/77 Pulse: 76 Respirations: 15 Pulse Ox (%): 98 - Physical Exam General: Alert, Demented, Confused HEENT: Atraumatic, Normocephalic, PERRLA Neck: Supple, 2+ carotid pulse no bruit Respiratory: Diminished Cardiovascular: No edema, Normal pulses, Regular rate/rhythm Capillary refill: <2 Seconds Gastrointestinal: Normal bowel sounds Musculoskeletal: No clubbing, No swelling Integumentary: Skin lesion Neurological: Dementia Lymphatics: No axilla or inguinal lymphadenopathy - Studies Laboratory Data (last 24 hrs) 04/25/22 09:40: PT 12.7 H, INR 1.15 04/25/22 09:40: WBC 9.90, Hgb 12.7 L, Hct 38.4 L, Plt Count 266 04/25/22 09:40: Sodium 144, Potassium 4.1, BUN 14, Creatinine 0.99, Glucose 131 H, Magnesium 2.4, Total Bilirubin 0.7, AST 17, ALT 18, Alkaline Phosphatase 67 Assessment and Plan - Plan Assessment New seizures rule out CVA TIA AMS Dementia Plan New seizures rule out CVA/TIA No further seizure-like activities Continue seizure precaution Keep patient n.p.o. Swallow evaluation, advance diet as tolerated Head CT negative for any acute findings Neurology consulted, for further recommendations AMS History of dementia Head CT negative for any acute findings UA ordered Dementia Continue to monitor PPX- Lovenox Code Status- Full code Discharge Plan: Home Plan to discharge in: 48 Hours - Advance Directives Does patient have a Living Will: Yes Does patient have a Durable POA for Healthcare: Yes - Code Status/Comfort Care Code Status Assessed: Yes (Full code) Critical Care: No Time Spent Managing Pts Care (In Minutes): 50
[2022-04-25 11:19] LABS: Urine Blood 1+ (Negative); Urine Glucose Negative (Negative); Urine Protein 3+ (Negative); Urine Specific Gravity >=1.030 (1.005-1.030)
[2022-04-25 11:27] LABS: Urine Bacteria None Seen /HPF (<20); Urine Crystals Unidentified Few /HPF (None Seen); Urine Mucus Slight /HPF (None Seen)
[2022-04-25 16:11] VITALS: BMI 22.8
[2022-04-25 16:20] VITALS: O2SAT 98
[2022-04-25] MEDS: levETIRAcetam 500 MG in NA CHLORIDE 0.9% 100 ML IV SCH (18:27)
[2022-04-25] MEDS: MELATONIN 5 MG TABLET PO PRN (20:06)
[2022-04-26] MEDS: NA CHLORIDE 0.9% 1,000 ML IV SCH ×3 (06:32→21:16)
[2022-04-26] MEDS: levETIRAcetam 500 MG in NA CHLORIDE 0.9% 100 ML IV SCH ×2 (06:32→17:00)
[2022-04-26 08:02] LABS: Absolute Lymphocytes (CBC) 1.1 K/uL (0.7-4.9); Hematocrit 31.3 % (39.6-49.0); Lymphocytes % 16.4 % (15.3-44.8); MCV 91.6 fL (80-100); RBC Red Blood Cell Count 3.42 M/uL (4.33-5.43)
[2022-04-26 08:15] LABS: Magnesium 2.3 mg/dL (1.6-2.4); Phosphorus 3.5 mg/dL (2.5-4.9); Potassium 3.9 mmol/L (3.5-5.1)
[2022-04-26] MEDS: RIVASTIGMINE 9.5 MG/24 HR PATCH TD SCH (08:26)
[2022-04-26] MEDS: ENOXAPARIN 40 MG/0.4 ML SQ SCH (08:26)
[2022-04-26] MEDS ORDERED: D10W 250 ML IV SCH ×2 (13:00)
--- NOTE | 2022-04-26 14:16 | P.PN ---
Subjective Date of Service: 04/26/22 Chief Complaint: New seizure, AMS Patient was somnolent throughout my interaction this morning. Spouse by his bedside gives all the history. Spouse reported jerking movements that appear to be seizures followed by a period of altered mental status which could be postictal state. No fever reported. Physical Examination - Vital Signs Temperature: 97.8 F Blood Pressure: 102/64 Pulse: 62 Respirations: 16 Pulse Ox (%): 98 - Studies Laboratory Data (last 24 hrs) 04/26/22 07:46: Sodium 144, Potassium 3.9, BUN 13, Creatinine 0.80, Glucose 95, Phosphorus 3.5, Magnesium 2.3 04/26/22 07:46: WBC 7.00, Hgb 10.6 L D, Hct 31.3 L, Plt Count 192 D Assessment And Plan - Plan Physical Exam General: Somnolent. HEENT: Atraumatic, PERRLA Neck: Supple. Respiratory: Clear to auscultation bilaterally Cardiovascular: No edema, Normal pulses, Regular rate/rhythm Gastrointestinal: Normal bowel sounds, nontender Musculoskeletal: No swelling, no erythema, no tenderness Integumentary: Skin lesion Neurological: Somnolent, withdraws all limbs to touch Lymphatics: No axilla or inguinal lymphadenopathy. Diagnosis: Seizure-like activity Altered mental status Acute cystitis without hematuria Alzheimer dementia Plan: Patient likely had a seizure episode given UTI which lowers threshold for seizures. Patient started on Keppra Neurology consult Routine EEG Head CT with no acute findings. IV Rocephin for UTI. Blood culture: No growth to date. Urine cultures pending. Continue rivastigmine patch for dementia. Periodic reorientation.
[2022-04-26] MEDS: CEFTRIAXONE 1,000 MG in NA CHLORIDE 0.9% 50 ML IVPB SCH (14:55)
[2022-04-26] MEDS: MELATONIN 5 MG TABLET PO PRN (21:16)
[2022-04-27] MEDS: levETIRAcetam 500 MG in NA CHLORIDE 0.9% 100 ML IV SCH (05:27)
[2022-04-27] MEDS: NA CHLORIDE 0.9% 1,000 ML IV SCH (05:27)
[2022-04-27 06:10] LABS: Absolute Lymphocytes (CBC) 1.1 K/uL (0.7-4.9); Hematocrit 31.7 % (39.6-49.0); Lymphocytes % 20.6 % (15.3-44.8); MCV 91.3 fL (80-100); MPV 8.3 fL (7.6-11.3); RBC Red Blood Cell Count 3.47 M/uL (4.33-5.43)
[2022-04-27 06:19] LABS: Magnesium 2.4 mg/dL (1.6-2.4); Potassium 3.8 mmol/L (3.5-5.1)
[2022-04-27] MEDS: RIVASTIGMINE 9.5 MG/24 HR PATCH TD SCH (07:45)
[2022-04-27] MEDS: CEFTRIAXONE 1,000 MG in NA CHLORIDE 0.9% 50 ML IVPB SCH (07:45)
[2022-04-27] MEDS: ENOXAPARIN 40 MG/0.4 ML SQ SCH (07:45)
[2022-04-27] MEDS ORDERED: POTASSIUM CL SA 10 MEQ TAB PO ONE (09:00)
--- NOTE | 2022-04-27 15:40 | P.DS ---
Admission Date: 04/26/22 Discharge Date: 04/27/22 Disposition: DC HOME/HOME HEALTH CARE Discharge Condition: FAIR Reason for Admission: New seizure, AMS Brief History of Present Illness: 72-year-old male with past medical history of dementia. Patient presented to the emergency room via EMS with complaints of altered mental status and seizure-like activities. Patient was evaluated in the ER, with at the bedside. Patient is cognitively impaired due to dementia. reported she noticed that his arms were twitching and he was shaking and was making "weird sounds". This was followed by a period of unresponsiveness. She denied any foaming at the mouth. Head CT done in the emergency department did not show any acute disease. Patient was admitted for further management. Hospital Course: Diagnosis: Seizure-like activity Altered mental status Acute cystitis without hematuria Alzheimer dementia Patient admitted to the medical floor. His symptoms likely suggest seizure episode. UA suggested the presence of UTI. Seizures highly likely as UTI reduces threshold for seizures Patient was treated with IV Keppra and IV Rocephin. Urine culture yielded no growth Patient seen by neurology Dr. Loja, EEG done and the results to be followed by Dr. Purvi Loja noted patient is on Depakote at home and recommended to continue Depakote for seizures. Keppra discontinued on discharge Continued rivastigmine patch for dementia. Patient seen by physical therapy and he was able to ambulate with contact-guard assist. feels patient is at baseline and requested for discharge. Patient is discharged to follow-up with Dr. Loja as outpatient. Vital Signs/Physical Exam: Temp Pulse Resp BP Pulse Ox 97.6 F 54 16 124/70 95 04/27/22 12:00 04/27/22 12:00 04/27/22 12:00 04/27/22 12:00 04/27/22 12:00 General: In no apparent distress, Other (Awake) Neck: JVD not distended Respiratory: Clear to auscultation bilaterally, Normal air movement Cardiovascular: Regular rate/rhythm, Normal S1 S2 Gastrointestinal: Soft and benign, Non-distended, No tenderness Musculoskeletal: No swelling Integumentary: No rashes, No cyanosis Neurological: Normal strength at 5/5 x4 extr, Other (Shuffled gait) Laboratory Data at Discharge: WBC 5.50 K/uL (4.3-10.9) 04/27/22 05:40 Hgb 10.5 g/dL (13.6-17.9) L 04/27/22 05:40 Hct 31.7 % (39.6-49.0) L 04/27/22 05:40 Plt Count 183 K/uL (152-406) 04/27/22 05:40 PT 12.7 SECONDS (9.5-12.5) H 04/25/22 09:40 INR 1.15 04/25/22 09:40 Sodium 144 mmol/L (136-145) 04/27/22 05:40 Potassium 3.8 mmol/L (3.5-5.1) 04/27/22 05:40 BUN 13 mg/dL (7-18) 04/27/22 05:40 Creatinine 0.75 mg/dL (0.70-1.30) 04/27/22 05:40 Glucose 104 mg/dL (74-106) 04/27/22 05:40 Phosphorus 3.5 mg/dL (2.5-4.9) 04/26/22 07:46 Magnesium 2.4 mg/dL (1.6-2.4) 04/27/22 05:40 Total Bilirubin 0.7 mg/dL (0.2-1.0) 04/25/22 09:40 AST 17 U/L (15-37) 04/25/22 09:40 ALT 18 U/L (16-61) 04/25/22 09:40 Alkaline Phosphatase 67 U/L (45-117) 04/25/22 09:40 Home Medications: Melatonin 10 mg PO BEDTIME PRN 04/25/22 Rivastigmine Patch [Exelon 9.5 mg Patch] 1 patch TOP DAILY 04/25/22 Cefpodoxime Proxetil 200 mg PO BID #20 tab 04/27/22 New Medications: Cefpodoxime Proxetil 200 mg PO BID #20 tab Diet: Regular Activity: Fall precautions Followup: Tien Loja MD [ASSOCIATE-ACTIVE - CAN ADMIT] - 2-3 Days NONE,NONE [Primary Care Provider] - Time spent managing pt's care (in minutes): 38
[2022-04-27 16:12] VITALS: BP 130/67; TEMP 97.7
--- NOTE | 2022-04-27 16:35 | CON ---
Reason For Consultation: Consultation called because of altered mental status and possible seizures. Please note that patient was unable to provide any meaningful history. History was obtained from the patient's who was in the room in addition to a friend and chart review. Chief Complaint: Patient's said he had what looked like a seizure artificial plastic eye maker on 04/25/2022. History Of Present Illness: Mr. Díaz is a 72-year-old patient with a history of dementia, perha ps at least 2 years and most likely Alzheimer's, who previously saw Dr. Douglas Collins. He is on Exe ashwini patch every 24 hours. The patient was in bed in the artificial plastic eye maker on the when hi s noted he began shaking the right arm than the left arm and was unresponsive to her verbal and tactile stimulation. Activity continued perhaps 20-30 seconds and after he still was not responsive. She brought him to [facility] where he was evaluated for seizures. His head CT scan showe d no acute ischemic or hemorrhagic changes. His blood work revealed normal white blood cell count wi th slight decrease in hemoglobin to 12.7, platelets were normal. INR 1.15. His chemistries showed a slight decrease in GFR of 81. Lactic acid was elevated to 2.2 with normal procalcitonin of 0.05. L iver function studies unremarkable. Sodium and potassium, unremarkable. Chloride slightly elevated. Glucose was 131. Urinalysis showed 20-50 white blood cells, 11-20 red blood cells, 3+ protein. CO VID-19 testing influenza A and B testing were negative and his chest x-ray showed no acute cardiopulm onary processes. The patient did not require any IV benzodiazepine such as Ativan as he was not cont inually seizing and did note he did not bite his tongue. He did not have loss of urine or stool control. Since admission, his says no additional episodes of seizures noted. In retrospect, she said that he has had a brief jerking of the arms and legs ongoing for about perhap s 6 months to a year and his diagnosis of dementia was made over [address] Douglas Collins. The patient has had problems recalling words, thoughts, names, places, even his 's name, sense of direction and he has become largely nonverbal and may respond with 1 or 2 words or not at all to any questions. He has not had any obvious stroke-like symptoms. No face, arm, or leg numbness or weakn ess. Past Medical History: As noted, dementia. Allergies: NO KNOWN DRUG ALLERGIES. Medications: At home, Dietary Fiber 1 daily, omega-3, Omegared 1 daily, multivitamin 1 daily, plant stanol priscilla 450 mg daily, CoQ10 100 mg daily. Family History: Noncontributory. Social History: No alcohol, tobacco, or IV drug use. Review of Systems: Patient is unable to give any meaningful review of systems. His notes he has not had any recent fevers or chills, nausea, vomiting, myalgias, arthralgias, rash, headache, weight change. Past Surgical History: Right hip fracture surgery. Physical Examination: Vital Signs: Blood pressure 124/70, pulse 64, respiratory rate 16, temperature 98.0, oxygen saturati on 95% to 98% on room air. Weight 155 pounds, height 5 feet 9 inches, BMI 22. General: Mr. Díaz is sitting in a chair beside the bed. HEENT: He is normocephalic, atraumatic. Sclerae anicteric. Oropharynx is pink and moist. Neck: Supple. Chest: Clear. Heart: Regular. Extremities: Show no clubbing, cyanosis, or edema. Neurological: He is alert and oriented to person, but not place, situation, time. He is only able t o mimic commands when asked such as showing him a thumbs up that he does it. He is unable to respond to follow instructions to show thumbs up to take the right hand and touch the left year or follow an y instructions in a meaningful way. An attempt was made to complete a mini-mental status test, but t he patient was unable to say anything except that he answered to his name. He is disoriented times t o situation to place, to year, to date, month, unable to even repeat words and to follow any instruct ions, even one-step commands. That gives him around 0/30 on the mini-mental status test. In terms o f strength, he has intact 5/5 proximally and distally. Sensation intact to upper and lower extremiti es. Reflexes 1+ upper and lower extremities. Coordination intact upper and lower extremities. Gait , good stance, right arm swing. Assessment: Mr. Díaz is a 72-year-old patient with possible advanced Alzheimer disease. He has had a workup by Dr. Douglas Collins in the past. Patient's family does say he has had some behaviora l changes with potential aggression and agitation and he was put on Depakote. Patient's does no t know the dosage, but it was on once a day dosing, perhaps 250 mg extended release at night. While here in [facility], he was given a loading dose of Keppra and put on Keppra 500 mg twice dave ly. Continued on the Exelon patch mg daily, given a liter of fluid. He did receive Rocep hin along with deep vein thrombosis prophylaxis of Lovenox. Plan: 1.At least, 250 mg extended release Depakote at night. 2.Continue Exelon patch mg every 24 hours. 3.He may benefit from cranberry pills 200 mg twice daily to decrease the risk of urinary tract infec tion. Also, he should be hydrated at least 8 glasses of water daily. 4.He does have a followup in my clinic this Wednesday that is Wednesday. Please note, he can be discha rged home today. GLADIS/MURALI Voice ID: [id number] Report ID: [id number]
--- NOTE | 2022-04-27 17:38 | EKG ---
Test Date: 2022-04-25 Test Time: 10:19:30 Banquet Captain: MARIANGEL MEASUREMENT RESULTS: Intervals: Rate: 81 IN: 198 QRSD: 62 QT: 404 QTc: 469 Gleason: P: 82 IN: 198 QRS: 76 T: 72 INTERPRETIVE STATEMENTS: Normal sinus rhythm Nonspecific ST and T wave abnormality Abnormal ECG Compared to ECG 04/01/2022 10:17:36 ST (T wave) deviation now present Electronically Signed On 04-27-22 17:33:24 ASSISTANT SUPERINTENDENT by Andrew Kern
--- NOTE | 2022-05-01 07:25 | EEG ---
CHART: [id number] TEST ID#: [id number] DATE OF STUDY: 04-27-2022 THE EEG WAS RECORDED PORTABLE IN THE PATIENT'S ON A 17 CHANNEL MACHINE. ELECTRODES WERE APPLIED IN THE USUAL MANNER USING THE INTERNATIONAL 10-20 SYSTEM. THE WAKING BACKGROUND RHYTHM IN THIS RECORD CONSISTS OF POORLY DEVELOPED AND POORLY ORGANIZED WAVES OF 6-7 HZ., MAXIMAL IN THE POSTERIOR HEAD REGIONS WHICH ATTENUATE POORLY WITH EYE OPENING. MODERATE VOLTAGE 4-6 HZ MIXED WITH OCCASIONAL 1.5-3 HZ MODERATE VOLTAGE IS EXPRESSED IN THE FRONTAL REGIONS. THERE ARE NO FOCAL OR LATERALIZING FEATURES. NO EPILEPTIFORM ACTIVITY APPEARS. SLEEP DID NOT OCCUR. HYPERVENTILATION WAS NOT PERFORMED. PHOTIC STIMULATION PRODUCED NO DRIVING BILATERALLY. IMPRESSION: THIS IS A MODERATELY ABNORMAL ROUTINE EEG DUE TO A MODERATELY SLOW BACKGROUND. THIS FINDING IS NON-SPECIFIC AND CONSISTENT WITH A MODERATE DIFFUSE DISTURBANCE IN CEREBRAL FUNCTION.
== END 2022-04-27 16:14 | disposition home health service (06) | DRG 101 ==
LOC: ER 09:12 → ERHOLD 10:41 → 4TH 15:36 → OBSVTOIN 04-26 10:56
PROVIDERS: ADMIT Internal Medicine; ATTEND Internal Medicine
DX: G40.509 Epileptic seizures related to external causes, not intractable, without status epilepticus (principal); N30.00 Acute cystitis without hematuria; G30.9 Alzheimer's disease, unspecified; F02.80 Dementia in other diseases classified elsewhere, unspecified severity, without behavioral disturbance, psychotic disturbance, mood disturbance, and anxiety; Z79.899 Other long term (current) drug therapy; Z20.822 Contact with and (suspected) exposure to COVID-19
CPT/HCPCS: 0240U; 36415; 70450; 71045; 80048; 80076; 81003; 81015; 82140; 82550; 82947; 83605; 83735; 83880; 84100; 84145; 84484; 85025; 85610; 87040; 87086; 87088; 93005; 95816; 96365; 96366; 96367; 96368; 97116; 97161; 99285; G0378; J1650; J1953; J3411; J7030; J7040